=== PATIENT | male | born 1950 | race Caucasian/White ===

== ENCOUNTER → 2018-05-14 07:43 | Outpatient (CLI) | payer MEDICARE, OTHER, SELFPAY ==
[2018-05-14 09:04] LABS: Hemoglobin 14.6 g/dl (13.0-16.5); Mean Corp Hgb Conc 33.2 g/gl (32-36); Mean Corpuscular Hgb 31.8 pg (27.0-32.0); Mean Corpuscular Volume 95.9 fL (80-94); Mean Platelet Vol. 11.3 fl (6.2-12.0); Platelet Count 158 K/mm3 (150-450); RBC Distribution Width CV 12.8 % (11.6-14.6); RBC Distribution Width SD 44.4 fl (35.1-43.9); Red Blood Count 4.59 M/mm3 (4.6-6.2)
[2018-05-14 09:09] LABS: Scan Indicated on CBC? Y/N NO
[2018-05-14 09:20] LABS: Microalbumin,Random Urine 51.8 mg/L (NO RANGE EST.); Microalbumin:Creatinine Ratio 68.2 mg/g CRE (<30 mg/g CRE)
[2018-05-14 09:32] LABS: Albumin, Serum 3.7 g/dL (3.2-5.0); BUN 25 mg/dL (7-18); BUN/Creat Ratio 12.4 RATIO (10-20); Calcium,Total 8.6 mg/dL (8.5-10.1); Chloride 107 mmol/L (98-107); Creatinine, Serum 2.02 mg/dL (0.70-1.30); EST Glomerular Filtration Rate 35 mL/min (>60); Est Glom Filt Rate - Afr Amer 42 mL/min (>60); Glucose 85 mg/dL (74-106); Magnesium 2.3 mg/dL (1.6-2.6); Phosphorus 3.1 mg/dL (2.5-4.9); Potassium 4.4 mmol/L (3.5-5.1); Sodium Level 143 mmol/L (136-145)
[2018-05-14 12:46] LABS: PTHIN 61.3 pg/mL (18.4-80.1); Vitamin D,25 Hydroxy 29.2 ng/mL (29.95-100.01)
== END ==
PROVIDERS: Family Provider Family Medicine; PCP Family Medicine; Visit Provider Internal Medicine Nephrology
DX: N18.3 Chronic kidney disease, stage 3 (moderate) (principal); D63.1 Anemia in chronic kidney disease; E55.9 Vitamin D deficiency, unspecified
CPT/HCPCS: 36415; 80069; 82043; 82306; 82570; 83735; 83970; 85027

== ENCOUNTER → 2018-09-16 08:06 | Outpatient (CLI) | payer MEDICARE, OTHER, SELFPAY ==
[2018-09-16 08:30] LABS: Hematocrit 44.7 % (40-54); Hemoglobin 14.2 g/dl (13.0-16.5); Mean Corp Hgb Conc 31.8 g/gl (32-36); Mean Corpuscular Hgb 31.3 pg (27.0-32.0); Mean Corpuscular Volume 98.7 fL (80-94); Mean Platelet Vol. 10.6 fl (6.2-12.0); Platelet Count 179 K/mm3 (150-450); RBC Distribution Width CV 13.1 % (11.6-14.6); RBC Distribution Width SD 47.4 fl (35.1-43.9); Red Blood Count 4.53 M/mm3 (4.6-6.2); Scan Indicated on CBC? Y/N NO
[2018-09-16 09:02] LABS: Albumin, Serum 3.5 g/dL (3.2-5.0); BUN 26 mg/dL (7-18); BUN/Creat Ratio 13.3 RATIO (10-20); Calcium,Total 8.4 mg/dL (8.5-10.1); Chloride 107 mmol/L (98-107); Creatinine, Serum 1.96 mg/dL (0.70-1.30); EST Glomerular Filtration Rate 36 mL/min (>60); Est Glom Filt Rate - Afr Amer 44 mL/min (>60); Glucose 90 mg/dL (74-106); Magnesium 2.2 mg/dL (1.6-2.6); Phosphorus 3.4 mg/dL (2.5-4.9); Potassium 4.2 mmol/L (3.5-5.1); Sodium Level 141 mmol/L (136-145)
[2018-09-16 09:06] LABS: Microalbumin:Creatinine Ratio 123.7 mg/g CRE (<30 mg/g CRE)
[2018-09-16 09:10] LABS: Vitamin D,25 Hydroxy 34.3 ng/mL (29.95-100.01)
[2018-09-16 09:11] LABS: PTHIN 102.3 pg/mL (18.4-80.1)
== END ==
PROVIDERS: Family Provider Family Medicine; PCP Family Medicine; Referring Provider Internal Medicine Nephrology; Visit Provider Internal Medicine Nephrology
DX: N18.3 Chronic kidney disease, stage 3 (moderate) (principal); D63.1 Anemia in chronic kidney disease; E55.9 Vitamin D deficiency, unspecified
CPT/HCPCS: 36415; 80069; 82043; 82306; 82570; 83735; 83970; 85027

== ENCOUNTER → 2018-09-27 08:37 | Outpatient (CLI) | payer MEDICARE, OTHER, SELFPAY ==
[2018-09-27 10:57] LABS: Anion Gap 6 (5-15); BUN 31 mg/dL (7-18); BUN/Creat Ratio 15.8 RATIO (10-20); Calcium,Total 8.5 mg/dL (8.5-10.1); Chloride 107 mmol/L (98-107); Cholesterol 145 mg/dL (200); Creatinine, Serum 1.96 mg/dL (0.70-1.30); EST Glomerular Filtration Rate 36 mL/min (>60); Est Glom Filt Rate - Afr Amer 44 mL/min (>60); Glucose 82 mg/dL (74-106); High Density Lipoprotein 39 mg/dL; Potassium 4.4 mmol/L (3.5-5.1); Sodium Level 142 mmol/L (136-145); Triglycerides 122 mg/dL; Very Low Density Lipoprotein 24 mg/dL (5-40)
== END ==
PROVIDERS: Family Provider Family Medicine; PCP Family Medicine; Visit Provider Family Medicine
DX: I10 Essential (primary) hypertension (principal); E78.5 Hyperlipidemia, unspecified
CPT/HCPCS: 36415; 80048; 80061

== ENCOUNTER → 2019-04-06 | Outpatient (CLI) | payer MEDICARE, OTHER, SELFPAY ==
[2019-04-06 09:16] LABS: Hematocrit 43.8 % (40-54); Mean Corpuscular Hgb 30.7 pg (27.0-32.0); Mean Corpuscular Volume 96.1 fL (80-94); Mean Platelet Vol. 11.1 fl (6.2-12.0); Platelet Count 165 K/mm3 (150-450); RBC Distribution Width SD 45.4 fl (35.1-43.9); Red Blood Count 4.56 M/mm3 (4.6-6.2); White Blood Count 4.4 K/mm3 (4.4-11.0)
[2019-04-06 09:19] LABS: Scan Indicated on CBC? Y/N NO
[2019-04-06 09:33] LABS: Protein:Creat Ratio 206 mg/g CRE (0-200)
[2019-04-06 09:39] LABS: Albumin, Serum 3.5 g/dL (3.2-5.0); BUN 37 mg/dL (7-18); BUN/Creat Ratio 17.5 RATIO (10-20); Calcium,Total 8.8 mg/dL (8.5-10.1); Chloride 109 mmol/L (98-107); Creatinine, Serum 2.12 mg/dL (0.70-1.30); EST Glomerular Filtration Rate 33 mL/min (>60); Est Glom Filt Rate - Afr Amer 40 mL/min (>60); Glucose 90 mg/dL (74-106); Magnesium 2.2 mg/dL (1.6-2.6); Phosphorus 3.4 mg/dL (2.5-4.9); Potassium 4.9 mmol/L (3.5-5.1); Sodium Level 143 mmol/L (136-145)
[2019-04-06 09:44] LABS: Vitamin D,25 Hydroxy 52.2 ng/mL (29.95-100.01)
[2019-04-06 09:45] LABS: PTHIN 81.5 pg/mL (18.4-80.1)
== END | disposition home or self-care (01) ==
PROVIDERS: Family Provider Family Medicine; PCP Family Medicine; Referring Provider Internal Medicine Nephrology; Visit Provider Internal Medicine Nephrology
DX: N18.3 Chronic kidney disease, stage 3 (moderate) (principal)
CPT/HCPCS: 36415; 80069; 82306; 82570; 83735; 83970; 84156; 85027

== ENCOUNTER → 2019-07-13 | Outpatient (CLI) | payer MEDICARE, OTHER, SELFPAY ==
[2019-07-13 09:34] LABS: Hematocrit 44.3 % (40-54); Hemoglobin 14.2 g/dL (13.0-16.5); Mean Corp Hgb Conc 32.1 g/dL (32-36); Mean Corpuscular Hgb 31.3 pg (27.0-32.0); Mean Corpuscular Volume 97.8 fL (80-94); Mean Platelet Vol. 11.1 fl (6.2-12.0); Platelet Count 175 K/mm3 (150-450); RBC Distribution Width CV 12.4 % (11.6-14.6); RBC Distribution Width SD 45.1 fl (35.1-43.9); Red Blood Count 4.53 M/mm3 (4.6-6.2); White Blood Count 3.9 K/mm3 (4.4-11.0)
[2019-07-13 10:03] LABS: Albumin, Serum 3.9 g/dL (3.2-5.0); BUN 33 mg/dL (7-18); BUN/Creat Ratio 15.3 RATIO (10-20); Calcium,Total 8.8 mg/dL (8.5-10.1); Chloride 106 mmol/L (98-107); Creatinine, Serum 2.15 mg/dL (0.70-1.30); EST Glomerular Filtration Rate 33 mL/min (>60); Est Glom Filt Rate - Afr Amer 39 mL/min (>60); Glucose 86 mg/dL (74-106); Magnesium 2.3 mg/dL (1.6-2.6); Potassium 4.1 mmol/L (3.5-5.1); Sodium Level 140 mmol/L (136-145)
[2019-07-13 10:08] LABS: Vitamin D,25 Hydroxy 49.6 ng/mL (29.95-100.01)
[2019-07-13 10:09] LABS: PTHIN 71.6 pg/mL (18.4-80.1)
[2019-07-13 10:18] LABS: Microalbumin,Random Urine 82.9 mg/L (NO RANGE EST.); Microalbumin:Creatinine Ratio 101.3 mg/g CRE (<30 mg/g CRE)
== END | disposition home or self-care (01) ==
PROVIDERS: Family Provider Family Medicine; PCP Family Medicine; Referring Provider Internal Medicine Nephrology; Visit Provider Internal Medicine Nephrology
DX: E55.9 Vitamin D deficiency, unspecified (principal); N18.4 Chronic kidney disease, stage 4 (severe); D63.1 Anemia in chronic kidney disease
CPT/HCPCS: 36415; 80069; 82043; 82306; 82570; 83735; 83970; 85027

== ENCOUNTER → 2019-08-01 | Outpatient (CLI) | payer MEDICARE, OTHER, SELFPAY ==
[2019-08-01 09:20] LABS: Albumin, Serum 3.7 g/dL (3.2-5.0); BUN 40 mg/dL (7-18); BUN/Creat Ratio 17.8 RATIO (10-20); Calcium,Total 8.7 mg/dL (8.5-10.1); Chloride 110 mmol/L (98-107); Creatinine, Serum 2.25 mg/dL (0.70-1.30); EST Glomerular Filtration Rate 31 mL/min (>60); Est Glom Filt Rate - Afr Amer 37 mL/min (>60); Glucose 85 mg/dL (74-106); Phosphorus 2.9 mg/dL (2.5-4.9); Potassium 4.5 mmol/L (3.5-5.1); Sodium Level 142 mmol/L (136-145)
== END | disposition home or self-care (01) ==
LOC: LAB 08:06
PROVIDERS: Family Provider Family Medicine; PCP Family Medicine; Referring Provider Internal Medicine Nephrology; Visit Provider Internal Medicine Nephrology
DX: I12.9 Hypertensive chronic kidney disease with stage 1 through stage 4 chronic kidney disease, or unspecified chronic kidney disease (principal)
CPT/HCPCS: 36415; 80069

== ENCOUNTER → 2020-01-12 | Outpatient (CLI) | payer MEDICARE, OTHER, SELFPAY ==
[2020-01-12 08:42] LABS: Absolute Lymphocyte Count 1.66 X10^3/uL (0.83-4.51); Absolute Neutrophil Count 2.5 X10^3/uL (2.0-7.7); Basophil# 0.02 X10^3/uL; Basophil% 0.4 % (0-1); Eosinophil# 0.06 X10^3/uL; Eosinophils% 1.2 % (0-5); Hematocrit 37.5 % (40-54); Hemoglobin 11.6 g/dL (13.0-16.5); Lymphocyte # 1.66 X10^3/ul (4.0); Lymphocyte % 33.9 % (19-41); Mean Corp Hgb Conc 30.9 g/dL (32-36); Mean Corpuscular Hgb 30.9 pg (27.0-32.0); Mean Corpuscular Volume 99.7 fL (80-94); Mean Platelet Vol. 11.7 fl (6.2-12.0); Monocyte# 0.62 X10^3/uL; Monocyte% 12.7 % (0-10); NRBC Flagged by Analyzer 0 % (0-5); Neutrophil # 2.53 X10^3/uL (2.7-7.7); Neutrophil % 51.6 % (47-70); Platelet Count 178 K/mm3 (150-450); RBC Distribution Width CV 11.9 % (11.6-14.6); RBC Distribution Width SD 43.7 fl (35.1-43.9); Red Blood Count 3.76 M/mm3 (4.6-6.2); White Blood Count 4.9 K/mm3 (4.4-11.0)
[2020-01-12 09:04] LABS: BUN 32 mg/dL (7-18); Creatinine, Serum 2.31 mg/dL (0.70-1.30); Glucose 91 mg/dL (74-106)
[2020-01-12 09:05] LABS: Albumin, Serum 3.6 g/dL (3.2-5.0); BUN/Creat Ratio 13.9 RATIO (10-20); Calcium,Total 8.2 mg/dL (8.5-10.1); Chloride 110 mmol/L (98-107); EST Glomerular Filtration Rate 30 mL/min (>60); Est Glom Filt Rate - Afr Amer 36 mL/min (>60); Magnesium 2.3 mg/dL (1.6-2.6); Phosphorus 3.3 mg/dL (2.5-4.9); Potassium 4.3 mmol/L (3.5-5.1); Sodium Level 142 mmol/L (136-145)
[2020-01-12 09:07] LABS: Microalbumin,Random Urine 80.2 mg/L (NO RANGE EST.); Microalbumin:Creatinine Ratio 85.7 mg/g CRE (<30 mg/g CRE)
[2020-01-12 10:01] LABS: PTHIN 59.6 pg/mL (18.4-80.1)
[2020-01-12 10:05] LABS: Vitamin D,25 Hydroxy 42.3 ng/mL
== END | disposition home or self-care (01) ==
PROVIDERS: PCP Family Medicine; Referring Provider Internal Medicine Nephrology; Visit Provider Internal Medicine Nephrology
DX: N18.4 Chronic kidney disease, stage 4 (severe) (principal); D63.1 Anemia in chronic kidney disease; E55.9 Vitamin D deficiency, unspecified
CPT/HCPCS: 36415; 80069; 82043; 82306; 82570; 83735; 83970; 85025

== ENCOUNTER → 2020-05-10 | Outpatient (CLI) | payer MEDICARE, OTHER, SELFPAY ==
[2020-05-10 08:19] LABS: Hematocrit 36.6 % (40-54); Hemoglobin 11.5 g/dL (13.0-16.5); Mean Corp Hgb Conc 31.4 g/dL (32-36); Mean Corpuscular Hgb 31.5 pg (27.0-32.0); Mean Corpuscular Volume 100.3 fL (80-94); Mean Platelet Vol. 11.5 fl (6.2-12.0); Platelet Count 158 K/mm3 (150-450); RBC Distribution Width CV 12.6 % (11.6-14.6); RBC Distribution Width SD 46.5 fl (35.1-43.9); Red Blood Count 3.65 M/mm3 (4.6-6.2); White Blood Count 4.8 K/mm3 (4.4-11.0)
[2020-05-10 09:25] LABS: Albumin, Serum 3.8 g/dL (3.2-5.0); BUN 50 mg/dL (7-18); BUN/Creat Ratio 19.8 RATIO (10-20); Calcium,Total 8.5 mg/dL (8.5-10.1); Chloride 111 mmol/L (98-107); Creatinine, Serum 2.53 mg/dL (0.70-1.30); EST Glomerular Filtration Rate 27 mL/min (>60); Est Glom Filt Rate - Afr Amer 33 mL/min (>60); Ferritin 194 ng/mL (26-388); Glucose 91 mg/dL (74-106); Iron 66 ug/dL (65-175); Iron Binding Capacity,Total 196 ug/dL (250-450); Magnesium 2.3 mg/dL (1.6-2.6); Phosphorus 3.9 mg/dL (2.5-4.9); Potassium 4.9 mmol/L (3.5-5.1); Sodium Level 142 mmol/L (136-145)
[2020-05-10 09:30] LABS: Microalbumin,Random Urine 53.7 mg/L (NO RANGE EST.); Microalbumin:Creatinine Ratio 90.3 mg/g CRE (<30 mg/g CRE)
[2020-05-10 15:13] LABS: Vitamin B12 322 pg/mL (211-911); Vitamin D,25 Hydroxy 53.1 ng/mL
== END | disposition home or self-care (01) ==
LOC: LAB 07:55
PROVIDERS: PCP Family Medicine; Referring Provider Internal Medicine Nephrology; Visit Provider Internal Medicine Nephrology
DX: N18.4 Chronic kidney disease, stage 4 (severe) (principal); E55.9 Vitamin D deficiency, unspecified; D63.1 Anemia in chronic kidney disease
CPT/HCPCS: 36415; 80069; 82043; 82306; 82570; 82607; 82728; 82746; 83540; 83550; 83735; 83970; 85027

== ENCOUNTER → 2020-08-13 | Outpatient (CLI) | payer MEDICARE, OTHER, SELFPAY ==
[2020-08-13 08:42] LABS: Hematocrit 35.7 % (40-54); Mean Corp Hgb Conc 30.8 g/dL (32-36); Mean Corpuscular Hgb 31.3 pg (27.0-32.0); Mean Corpuscular Volume 101.4 fL (80-94); Mean Platelet Vol. 11.7 fl (6.2-12.0); Platelet Count 159 K/mm3 (150-450); RBC Distribution Width CV 12.9 % (11.6-14.6); RBC Distribution Width SD 48.4 fl (35.1-43.9); Red Blood Count 3.52 M/mm3 (4.6-6.2); White Blood Count 5.2 K/mm3 (4.4-11.0)
[2020-08-13 09:10] LABS: Albumin, Serum 3.8 g/dL (3.2-5.0); BUN 34 mg/dL (7-18); BUN/Creat Ratio 14.2 RATIO (10-20); Calcium,Total 8.5 mg/dL (8.5-10.1); Chloride 109 mmol/L (98-107); Creatinine, Serum 2.39 mg/dL (0.70-1.30); EST Glomerular Filtration Rate 29 mL/min (>60); Est Glom Filt Rate - Afr Amer 35 mL/min (>60); Glucose 92 mg/dL (74-106); Magnesium 2.3 mg/dL (1.6-2.6); Phosphorus 3.6 mg/dL (2.5-4.9); Potassium 5.3 mmol/L (3.5-5.1); Sodium Level 138 mmol/L (136-145)
[2020-08-15 08:05] LABS: PTHIN 86.1 pg/mL (18.4-80.1)
[2020-08-15 08:16] LABS: Vitamin D,25 Hydroxy 38.6 ng/mL
== END | disposition home or self-care (01) ==
LOC: LAB 07:59
PROVIDERS: PCP Family Medicine; Referring Provider Internal Medicine Nephrology; Visit Provider Internal Medicine Nephrology
DX: E55.9 Vitamin D deficiency, unspecified (principal); N18.4 Chronic kidney disease, stage 4 (severe); D63.1 Anemia in chronic kidney disease
CPT/HCPCS: 36415; 80069; 82306; 82570; 83735; 83970; 85027

== ENCOUNTER → 2020-12-11 08:05 | Outpatient (CLI) | payer MEDICARE, OTHER, SELFPAY ==
[2020-12-11 09:20] LABS: Hematocrit 38.5 % (40-54); Hemoglobin 12.1 g/dL (13.0-16.5); Mean Corp Hgb Conc 31.4 g/dL (32-36); Mean Corpuscular Hgb 30.9 pg (27.0-32.0); Mean Corpuscular Volume 98.2 fL (80-94); Mean Platelet Vol. 11.5 fl (6.2-12.0); Platelet Count 176 K/mm3 (150-450); RBC Distribution Width CV 12.9 % (11.6-14.6); RBC Distribution Width SD 46.2 fl (35.1-43.9); Red Blood Count 3.92 M/mm3 (4.6-6.2); White Blood Count 4.9 K/mm3 (4.4-11.0)
[2020-12-11 09:55] LABS: PTHIN 82.1 pg/mL (18.4-80.1)
[2020-12-11 09:58] LABS: Albumin, Serum 3.6 g/dL (3.2-5.0); BUN 41 mg/dL (7-18); BUN/Creat Ratio 18.6 RATIO (10-20); Calcium,Total 8.6 mg/dL (8.5-10.1); Chloride 112 mmol/L (98-107); Creatinine, Serum 2.21 mg/dL (0.70-1.30); EST Glomerular Filtration Rate 31 mL/min (>60); Est Glom Filt Rate - Afr Amer 38 mL/min (>60); Glucose 87 mg/dL (74-106); Magnesium 2.2 mg/dL (1.6-2.6); Phosphorus 4.2 mg/dL (2.5-4.9); Potassium 4.3 mmol/L (3.5-5.1); Sodium Level 143 mmol/L (136-145)
[2020-12-11 11:41] LABS: Microalbumin,Random Urine 77.2 mg/L (NO RANGE EST.); Microalbumin:Creatinine Ratio 94.4 mg/g CRE (<30 mg/g CRE)
== END ==
PROVIDERS: PCP Family Medicine; Referring Provider Internal Medicine Nephrology; Visit Provider Internal Medicine Nephrology
DX: E55.9 Vitamin D deficiency, unspecified (principal); N18.4 Chronic kidney disease, stage 4 (severe); D63.1 Anemia in chronic kidney disease
CPT/HCPCS: 36415; 80069; 82043; 82306; 82570; 83735; 83970; 85027

== ENCOUNTER 2021-01-15 09:00 | Outpatient (RCR) | payer MEDICARE, OTHER, SELFPAY ==
[2021-01-15] MEDS: COVID-19 VACC, MRNA(PFIZER)/PF 30 MCG/0.3 ML SYRINGE IM (18:20)
[2021-02-05] MEDS: COVID-19 VACC, MRNA(PFIZER)/PF 30 MCG/0.3 ML SYRINGE IM (18:01)
== END 2021-04-16 23:59 ==
LOC: IMMUN 09:00
PROVIDERS: PCP Family Medicine; Visit Provider Family Medicine
DX: Z23 Encounter for immunization (principal)
CPT/HCPCS: 0001A; 0002A; 91300

== ENCOUNTER → 2021-04-17 08:02 | Outpatient (CLI) | payer MEDICARE, OTHER, SELFPAY ==
[2021-04-17 09:08] LABS: Absolute Lymphocyte Count 1.36 X10^3/uL (0.83-4.51); Absolute Neutrophil Count 2.3 X10^3/uL (2.0-7.7); Basophil# 0.03 X10^3/uL; Basophil% 0.7 % (0-1); Eosinophil# 0.07 X10^3/uL; Eosinophils% 1.6 % (0-5); Hematocrit 38.9 % (40-54); Hemoglobin 12.4 g/dL (13.0-16.5); Lymphocyte # 1.36 X10^3/ul (0.83-4.51); Lymphocyte % 31.7 % (19-41); Mean Corp Hgb Conc 31.9 g/dL (32-36); Mean Corpuscular Hgb 30.9 pg (27.0-32.0); Monocyte% 11.7 % (0-10); NRBC Flagged by Analyzer 0 % (0-5); Neutrophil # 2.32 X10^3/uL (2.7-7.7); Neutrophil % 54.1 % (47-70); Platelet Count 215 K/mm3 (150-450); RBC Distribution Width CV 12.2 % (11.6-14.6); RBC Distribution Width SD 43.4 fl (35.1-43.9); Red Blood Count 4.01 M/mm3 (4.6-6.2); White Blood Count 4.3 K/mm3 (4.4-11.0)
[2021-04-17 09:40] LABS: Microalbumin,Random Urine 27.3 mg/L (NO RANGE EST.); Microalbumin:Creatinine Ratio 43.8 mg/g CRE (<30 mg/g CRE)
[2021-04-17 09:46] LABS: PTHIN 76.7 pg/mL (18.4-80.1)
[2021-04-17 09:51] LABS: Vitamin D,25 Hydroxy 46.2 ng/mL
[2021-04-17 09:52] LABS: Albumin, Serum 3.3 g/dL (3.2-5.0); BUN 54 mg/dL (7-18); BUN/Creat Ratio 21.7 RATIO (10-20); Calcium,Total 8.5 mg/dL (8.5-10.1); Chloride 112 mmol/L (98-107); Creatinine, Serum 2.49 mg/dL (0.70-1.30); EST Glomerular Filtration Rate 27 mL/min (>60); Est Glom Filt Rate - Afr Amer 33 mL/min (>60); Glucose 96 mg/dL (74-106); Magnesium 2.5 mg/dL (1.6-2.6); Phosphorus 3.2 mg/dL (2.5-4.9); Potassium 5.2 mmol/L (3.5-5.1); Sodium Level 141 mmol/L (136-145)
== END ==
PROVIDERS: PCP Family Medicine; Referring Provider Internal Medicine Nephrology; Visit Provider Internal Medicine Nephrology
DX: N18.4 Chronic kidney disease, stage 4 (severe) (principal); D63.1 Anemia in chronic kidney disease; E55.9 Vitamin D deficiency, unspecified
CPT/HCPCS: 36415; 80069; 82043; 82306; 82570; 83735; 83970; 85025

== ENCOUNTER → 2021-08-26 08:03 | Outpatient (CLI) | payer MEDICARE, OTHER, SELFPAY ==
[2021-08-26 09:32] LABS: Hematocrit 37.8 % (40-54); Hemoglobin 11.8 g/dL (13.0-16.5); Mean Corp Hgb Conc 31.2 g/dL (32-36); Mean Corpuscular Hgb 31.3 pg (27.0-32.0); Mean Corpuscular Volume 100.3 fL (80-94); Mean Platelet Vol. 11.1 fl (6.2-12.0); Platelet Count 208 K/mm3 (150-450); RBC Distribution Width CV 12.1 % (11.6-14.6); RBC Distribution Width SD 44.6 fl (35.1-43.9); Red Blood Count 3.77 M/mm3 (4.6-6.2); White Blood Count 4.8 K/mm3 (4.4-11.0)
[2021-08-26 10:24] LABS: Albumin, Serum 3.4 g/dL (3.2-5.0); Anion Gap 6 (5-15); BUN 33 mg/dL (7-18); BUN/Creat Ratio 13.2 RATIO (10-20); Chloride 110 mmol/L (98-107); Cholesterol 166 mg/dL (200); EST Glomerular Filtration Rate 27 mL/min (>60); Est Glom Filt Rate - Afr Amer 33 mL/min (>60); Glucose 90 mg/dL (74-106); High Density Lipoprotein 37 mg/dL; Magnesium 2.4 mg/dL (1.6-2.6); Phosphorus 3.4 mg/dL (2.5-4.9); Potassium 4.9 mmol/L (3.5-5.1); Sodium Level 141 mmol/L (136-145); Triglycerides 133 mg/dL; Very Low Density Lipoprotein 27 mg/dL (5-40)
[2021-08-26 10:47] LABS: PTHIN 79.1 pg/mL (18.4-80.1)
[2021-08-26 10:53] LABS: Vitamin D,25 Hydroxy 44.1 ng/mL
[2021-08-26 10:58] LABS: Microalbumin,Random Urine 48.4 mg/L (NO RANGE EST.); Microalbumin:Creatinine Ratio 91.3 mg/g CRE (<30 mg/g CRE)
== END ==
PROVIDERS: PCP Family Medicine; Referring Provider Family Medicine; Visit Provider Family Medicine
DX: E55.9 Vitamin D deficiency, unspecified (principal); N18.4 Chronic kidney disease, stage 4 (severe); D63.1 Anemia in chronic kidney disease; E78.5 Hyperlipidemia, unspecified
CPT/HCPCS: 36415; 80048; 80061; 82040; 82043; 82306; 82570; 83735; 83970; 84100; 85027

== ENCOUNTER → 2022-03-10 | Outpatient (CLI) | payer MEDICARE, OTHER, SELFPAY ==
[2022-03-10 09:06] LABS: Hematocrit 36.5 % (40-54); Hemoglobin 11.5 g/dL (13.0-16.5); Mean Corp Hgb Conc 31.5 g/dL (32-36); Mean Corpuscular Hgb 31.7 pg (27.0-32.0); Mean Corpuscular Volume 100.6 fL (80-94); Mean Platelet Vol. 11.5 fl (6.2-12.0); Platelet Count 191 K/mm3 (150-450); RBC Distribution Width CV 12.9 % (11.6-14.6); RBC Distribution Width SD 48.2 fl (35.1-43.9); Red Blood Count 3.63 M/mm3 (4.6-6.2); White Blood Count 6.8 K/mm3 (4.4-11.0)
[2022-03-10 09:27] LABS: Microalbumin:Creatinine Ratio 133.3 mg/g CRE (<30 mg/g CRE)
[2022-03-10 09:32] LABS: Albumin, Serum 3.8 g/dL (3.2-5.0); BUN 41 mg/dL (7-18); BUN/Creat Ratio 16.3 RATIO (10-20); Calcium,Total 8.4 mg/dL (8.5-10.1); Chloride 112 mmol/L (98-107); Cholesterol 172 mg/dL (200); Creatinine, Serum 2.51 mg/dL (0.70-1.30); EST Glomerular Filtration Rate 27 mL/min (>60); Est Glom Filt Rate - Afr Amer 33 mL/min (>60); Glucose 90 mg/dL (74-106); High Density Lipoprotein 40 mg/dL; Magnesium 2.2 mg/dL (1.6-2.6); Phosphorus 3.6 mg/dL (2.5-4.9); Potassium 5.1 mmol/L (3.5-5.1); Sodium Level 140 mmol/L (136-145); Triglycerides 104 mg/dL; Very Low Density Lipoprotein 21 mg/dL (5-40)
[2022-03-10 09:35] LABS: Vitamin D,25 Hydroxy 44.3 ng/mL
== END | disposition home or self-care (01) ==
LOC: LAB 08:10
PROVIDERS: PCP Family Medicine; Referring Provider Internal Medicine Nephrology; Visit Provider Internal Medicine Nephrology
DX: I12.9 Hypertensive chronic kidney disease with stage 1 through stage 4 chronic kidney disease, or unspecified chronic kidney disease (principal); N18.4 Chronic kidney disease, stage 4 (severe); E55.9 Vitamin D deficiency, unspecified; D63.1 Anemia in chronic kidney disease
CPT/HCPCS: 36415; 80061; 80069; 82043; 82306; 82570; 83735; 83970; 85027

== ENCOUNTER → 2022-03-31 | Outpatient (CLI) | payer MEDICARE, OTHER, SELFPAY ==
[2022-03-31 15:57] LABS: PSA,Total - Annual Screen 4.21 ng/mL (0.00-4.00)
== END | disposition home or self-care (01) ==
LOC: LAB 14:55
PROVIDERS: PCP Family Medicine; Visit Provider Urology
DX: Z12.5 Encounter for screening for malignant neoplasm of prostate (principal)
CPT/HCPCS: 36415; 84153; G0103

== ENCOUNTER → 2022-09-08 | Outpatient (CLI) | payer MEDICARE, OTHER, SELFPAY ==
[2022-09-08 10:28] LABS: Hematocrit 33.5 % (40-54); Hemoglobin 10.8 g/dL (13.0-16.5); Mean Corp Hgb Conc 32.2 g/dL (32-36); Mean Corpuscular Hgb 32.3 pg (27.0-32.0); Mean Corpuscular Volume 100.3 fL (80-94); Mean Platelet Vol. 11.4 fl (6.2-12.0); Platelet Count 163 K/mm3 (150-450); RBC Distribution Width CV 12.3 % (11.6-14.6); RBC Distribution Width SD 44.9 fl (35.1-43.9); Red Blood Count 3.34 M/mm3 (4.6-6.2); White Blood Count 6.1 K/mm3 (4.4-11.0)
[2022-09-08 10:55] LABS: Vitamin D,25 Hydroxy 48.3 ng/mL
[2022-09-08 11:01] LABS: AST(SGOT) 9 U/L (15-37); Alanine Aminotransfer ALT/SGPT 15 U/L (16-61); Albumin, Serum 3.5 g/dL (3.2-5.0); Alkaline Phosphatase 55 U/L (45-117); Anion Gap 8 (5-15); BUN 41 mg/dL (7-18); BUN/Creat Ratio 15.6 RATIO (10-20); Calcium,Total 8.7 mg/dL (8.5-10.1); Chloride 110 mmol/L (98-107); Cholesterol 157 mg/dL (200); Creatinine, Serum 2.62 mg/dL (0.70-1.30); EST Glomerular Filtration Rate 26 mL/min (>60); Est Glom Filt Rate - Afr Amer 31 mL/min (>60); Globulin 3.4 g/dL (2.2-4.2); Glucose 90 mg/dL (74-106); High Density Lipoprotein 46 mg/dL; Magnesium 2.4 mg/dL (1.6-2.6); Microalbumin:Creatinine Ratio 96.9 mg/g CRE (<30 mg/g CRE); PSA,Total- Diagnostic 5.48 ng/mL (0.0-4.0); Potassium 4.7 mmol/L (3.5-5.1); Protein, Total 6.9 g/dL (6.4-8.2); Sodium Level 142 mmol/L (136-145); Triglycerides 65 mg/dL; Very Low Density Lipoprotein 13 mg/dL (5-40)
== END | disposition home or self-care (01) ==
LOC: LAB 08:43
PROVIDERS: PCP Family Medicine; Referring Provider Family Medicine; Visit Provider Family Medicine
DX: N40.0 Benign prostatic hyperplasia without lower urinary tract symptoms (principal); N18.4 Chronic kidney disease, stage 4 (severe); E78.5 Hyperlipidemia, unspecified; D63.1 Anemia in chronic kidney disease; E55.9 Vitamin D deficiency, unspecified
CPT/HCPCS: 36415; 80053; 80061; 82043; 82306; 82570; 83735; 83970; 84153; 85027

== ENCOUNTER → 2022-10-13 | Outpatient (CLI) | payer MEDICARE, OTHER, SELFPAY ==
[2022-10-13 09:09] LABS: Hematocrit 38.5 % (40-54); Hemoglobin 11.8 g/dL (13.0-16.5); Mean Corp Hgb Conc 30.6 g/dL (32-36); Mean Corpuscular Hgb 30.5 pg (27.0-32.0); Mean Corpuscular Volume 99.5 fL (80-94); Mean Platelet Vol. 11.3 fl (6.2-12.0); Platelet Count 183 K/mm3 (150-450); RBC Distribution Width SD 43.8 fl (35.1-43.9); Red Blood Count 3.87 M/mm3 (4.6-6.2); White Blood Count 4.5 K/mm3 (4.4-11.0)
[2022-10-13 09:29] LABS: Microalbumin,Random Urine 51.7 mg/L (NO RANGE EST.); Microalbumin:Creatinine Ratio 90.1 mg/g CRE (<30 mg/g CRE)
[2022-10-13 09:39] LABS: PTHIN 53.8 pg/mL (18.4-80.1)
[2022-10-13 09:41] LABS: Albumin, Serum 3.7 g/dL (3.2-5.0); BUN 34 mg/dL (7-18); BUN/Creat Ratio 13.7 RATIO (10-20); Chloride 112 mmol/L (98-107); Creatinine, Serum 2.49 mg/dL (0.70-1.30); EST Glomerular Filtration Rate 27 mL/min (>60); Est Glom Filt Rate - Afr Amer 33 mL/min (>60); Ferritin 142 ng/mL (26-388); Glucose 95 mg/dL (74-106); Iron 55 ug/dL (65-175); Iron Binding Capacity,Total 186 ug/dL (250-450); Magnesium 2.4 mg/dL (1.6-2.6); Phosphorus 3.5 mg/dL (2.5-4.9); Potassium 5.2 mmol/L (3.5-5.1); Sodium Level 140 mmol/L (136-145)
[2022-10-13 09:42] LABS: Vitamin D,25 Hydroxy 50.5 ng/mL
== END | disposition home or self-care (01) ==
LOC: LAB 08:23
PROVIDERS: PCP Family Medicine; Referring Provider Internal Medicine Nephrology; Visit Provider Internal Medicine Nephrology
DX: N18.4 Chronic kidney disease, stage 4 (severe) (principal); D63.1 Anemia in chronic kidney disease; E55.9 Vitamin D deficiency, unspecified
CPT/HCPCS: 36415; 80069; 82043; 82306; 82570; 82728; 83540; 83550; 83735; 83970; 85027

== ENCOUNTER → 2023-01-13 | Outpatient (CLI) | payer MEDICARE, OTHER, SELFPAY ==
[2023-01-13 08:32] LABS: Hematocrit 37.2 % (40-54); Hemoglobin 11.5 g/dL (13.0-16.5); Mean Corp Hgb Conc 30.9 g/dL (32-36); Mean Corpuscular Hgb 31.6 pg (27.0-32.0); Mean Corpuscular Volume 102.2 fL (80-94); Mean Platelet Vol. 11.1 fl (6.2-12.0); Platelet Count 190 K/mm3 (150-450); RBC Distribution Width CV 13.4 % (11.6-14.6); RBC Distribution Width SD 50.3 fl (35.1-43.9); Red Blood Count 3.64 M/mm3 (4.6-6.2)
[2023-01-13 08:56] LABS: PTHIN 100.1 pg/mL (18.4-80.1)
[2023-01-13 08:59] LABS: Vitamin D,25 Hydroxy 51.1 ng/mL
[2023-01-13 09:11] LABS: Microalbumin,Random Urine 88.9 mg/L (NO RANGE EST.); Microalbumin:Creatinine Ratio 92.2 mg/g CRE (<30 mg/g CRE)
[2023-01-13 09:15] LABS: Albumin, Serum 3.7 g/dL (3.2-5.0); BUN 38 mg/dL (7-18); BUN/Creat Ratio 15.9 RATIO (10-20); Calcium,Total 8.8 mg/dL (8.5-10.1); Chloride 112 mmol/L (98-107); Creatinine, Serum 2.39 mg/dL (0.70-1.30); EST Glomerular Filtration Rate 29 mL/min (>60); Est Glom Filt Rate - Afr Amer 34 mL/min (>60); Ferritin 86 ng/mL (26-388); Glucose 100 mg/dL (74-106); Iron 71 ug/dL (65-175); Iron Binding Capacity,Total 242 ug/dL (250-450); Magnesium 2.4 mg/dL (1.6-2.6); PERCENT IRON SATURATION 29.3 % (15.0-55.0); Phosphorus 4.1 mg/dL (2.5-4.9); Potassium 4.6 mmol/L (3.5-5.1); Sodium Level 145 mmol/L (136-145)
== END | disposition home or self-care (01) ==
LOC: LAB 08:04
PROVIDERS: PCP Family Medicine; Referring Provider Internal Medicine Nephrology; Visit Provider Internal Medicine Nephrology
DX: N18.4 Chronic kidney disease, stage 4 (severe) (principal); E55.9 Vitamin D deficiency, unspecified; D63.1 Anemia in chronic kidney disease
CPT/HCPCS: 36415; 80069; 82043; 82306; 82570; 82728; 83540; 83550; 83735; 83970; 85027

== ENCOUNTER → 2023-03-16 | Outpatient (CLI) | payer MEDICARE, OTHER, SELFPAY ==
[2023-03-16 08:43] LABS: Anion Gap 4 (5-15); BUN 49 mg/dL (7-18); BUN/Creat Ratio 18.1 RATIO (10-20); Calcium,Total 8.4 mg/dL (8.5-10.1); Chloride 114 mmol/L (98-107); Cholesterol 165 mg/dL (200); EST Glomerular Filtration Rate 25 mL/min (>60); Est Glom Filt Rate - Afr Amer 30 mL/min (>60); Glucose 99 mg/dL (74-106); High Density Lipoprotein 39 mg/dL; Potassium 5.1 mmol/L (3.5-5.1); Sodium Level 139 mmol/L (136-145); Triglycerides 94 mg/dL; Very Low Density Lipoprotein 19 mg/dL (5-40)
== END | disposition home or self-care (01) ==
LOC: LAB 08:09
PROVIDERS: PCP Family Medicine; Referring Provider Family Medicine; Visit Provider Family Medicine
DX: I10 Essential (primary) hypertension (principal)
CPT/HCPCS: 36415; 80048; 80061

== ENCOUNTER → 2023-07-27 | Outpatient (CLI) | payer MEDICARE, OTHER, SELFPAY ==
[2023-07-27 09:18] LABS: Hematocrit 35.3 % (40-54); Hemoglobin 10.9 g/dL (13.0-16.5); Mean Corp Hgb Conc 30.9 g/dL (32-36); Mean Corpuscular Hgb 31.2 pg (27.0-32.0); Mean Corpuscular Volume 101.1 fL (80-94); Mean Platelet Vol. 11.3 fl (6.2-12.0); Platelet Count 170 K/mm3 (150-450); RBC Distribution Width CV 13.1 % (11.6-14.6); RBC Distribution Width SD 48.2 fl (35.1-43.9); Red Blood Count 3.49 M/mm3 (4.6-6.2); White Blood Count 4.7 K/mm3 (4.4-11.0)
[2023-07-27 09:30] LABS: Protein, Urine (Random) 18.7 mg/dL (<11.9); Protein:Creat Ratio 294 mg/g CRE (0-200)
[2023-07-27 10:06] LABS: Albumin, Serum 3.9 g/dL (3.2-5.0); BUN 38 mg/dL (7-18); BUN/Creat Ratio 15.4 RATIO (10-20); Chloride 110 mmol/L (98-107); Creatinine, Serum 2.47 mg/dL (0.70-1.30); EST Glomerular Filtration Rate 27 mL/min (>60); Est Glom Filt Rate - Afr Amer 33 mL/min (>60); Glucose 100 mg/dL (74-106); Phosphorus 3.9 mg/dL (2.5-4.9); Potassium 4.7 mmol/L (3.5-5.1); Sodium Level 141 mmol/L (136-145)
[2023-07-27 10:08] LABS: Vitamin D,25 Hydroxy 59.9 ng/mL
== END | disposition home or self-care (01) ==
LOC: LAB 08:05
PROVIDERS: PCP Family Medicine; Referring Provider Internal Medicine Nephrology; Visit Provider Internal Medicine Nephrology
DX: N18.4 Chronic kidney disease, stage 4 (severe) (principal); E55.9 Vitamin D deficiency, unspecified; D63.1 Anemia in chronic kidney disease
CPT/HCPCS: 36415; 80069; 82306; 82570; 83970; 84156; 85027

== ENCOUNTER → 2023-09-17 | Outpatient (CLI) | payer MEDICARE, OTHER, SELFPAY ==
[2023-09-17 09:10] LABS: Anion Gap 2 (5-15); BUN 36 mg/dL (7-18); BUN/Creat Ratio 14.3 RATIO (10-20); Calcium,Total 8.7 mg/dL (8.5-10.1); Chloride 111 mmol/L (98-107); Cholesterol 168 mg/dL (200); Creatinine, Serum 2.51 mg/dL (0.70-1.30); EST Glomerular Filtration Rate 27 mL/min (>60); Est Glom Filt Rate - Afr Amer 33 mL/min (>60); Glucose 90 mg/dL (74-106); High Density Lipoprotein 36 mg/dL; Potassium 4.8 mmol/L (3.5-5.1); Sodium Level 140 mmol/L (136-145); Triglycerides 101 mg/dL; Very Low Density Lipoprotein 20 mg/dL (5-40)
== END | disposition home or self-care (01) ==
LOC: LAB 07:58
PROVIDERS: PCP Family Medicine; Visit Provider Family Medicine
DX: I10 Essential (primary) hypertension (principal)
CPT/HCPCS: 36415; 80048; 80061

== ENCOUNTER → 2024-02-09 | Outpatient (CLI) | payer MEDICARE, OTHER, SELFPAY ==
[2024-02-09 08:18] LABS: Hematocrit 33.9 % (40-54); Hemoglobin 10.7 g/dL (13.0-16.5); Mean Corp Hgb Conc 31.6 g/dL (32-36); Mean Corpuscular Hgb 31.4 pg (27.0-32.0); Mean Corpuscular Volume 99.4 fL (80-94); Mean Platelet Vol. 10.5 fl (6.2-12.0); Platelet Count 180 K/mm3 (150-450); RBC Distribution Width CV 13.2 % (11.6-14.6); RBC Distribution Width SD 48.5 fl (35.1-43.9); Red Blood Count 3.41 M/mm3 (4.6-6.2); White Blood Count 5.3 K/mm3 (4.4-11.0)
[2024-02-09 08:52] LABS: Albumin, Serum 3.7 g/dL (3.2-5.0); BUN 42 mg/dL (7-18); BUN/Creat Ratio 15.8 RATIO (10-20); Calcium,Total 8.9 mg/dL (8.5-10.1); Chloride 110 mmol/L (98-107); Creatinine, Serum 2.65 mg/dL (0.70-1.30); EST Glomerular Filtration Rate 25 mL/min (>60); Est Glom Filt Rate - Afr Amer 31 mL/min (>60); Glucose 100 mg/dL (74-106); Phosphorus 3.9 mg/dL (2.5-4.9); Potassium 4.4 mmol/L (3.5-5.1); Sodium Level 140 mmol/L (136-145)
[2024-02-09 10:01] LABS: Protein, Urine (Random) 24.2 mg/dL (<11.9); Protein:Creat Ratio 330 mg/g CRE (0-200)
== END | disposition home or self-care (01) ==
LOC: LAB 08:03
PROVIDERS: PCP Family Medicine; Referring Provider Internal Medicine Nephrology; Visit Provider Internal Medicine Nephrology
DX: N18.4 Chronic kidney disease, stage 4 (severe) (principal); D63.1 Anemia in chronic kidney disease
CPT/HCPCS: 36415; 80069; 82570; 84156; 85027

== ENCOUNTER → 2024-03-14 | Outpatient (CLI) | payer MEDICARE, OTHER, SELFPAY ==
[2024-03-14 17:47] LABS: PSA,Total- Diagnostic 3.49 ng/mL (0.0-4.0)
== END | disposition home or self-care (01) ==
LOC: MFPLAB 14:31
PROVIDERS: PCP Family Medicine; Visit Provider Family Medicine
DX: N40.0 Benign prostatic hyperplasia without lower urinary tract symptoms (principal)
CPT/HCPCS: 36415; 84153

== ENCOUNTER → 2024-08-08 | Outpatient (CLI) | payer MEDICARE, OTHER, SELFPAY ==
[2024-08-08 09:18] LABS: Hemoglobin 11.3 g/dL (13.0-16.5); Mean Corp Hgb Conc 31.4 g/dL (32-36); Mean Corpuscular Hgb 31.6 pg (27.0-32.0); Mean Corpuscular Volume 100.6 fL (80-94); Mean Platelet Vol. 11.5 fl (6.2-12.0); Platelet Count 190 K/mm3 (150-450); RBC Distribution Width CV 13.2 % (11.6-14.6); RBC Distribution Width SD 48.6 fl (35.1-43.9); Red Blood Count 3.58 M/mm3 (4.6-6.2); White Blood Count 6.2 K/mm3 (4.4-11.0)
[2024-08-08 09:42] LABS: Albumin, Serum 4.2 g/dL (3.2-5.0); BUN 37 mg/dL (7-18); BUN/Creat Ratio 14.1 RATIO (10-20); Calcium,Total 9.8 mg/dL (8.5-10.1); Chloride 105 mmol/L (98-107); Creatinine, Serum 2.63 mg/dL (0.70-1.30); EST Glomerular Filtration Rate 25 mL/min (>60); Est Glom Filt Rate - Afr Amer 31 mL/min (>60); Glucose 94 mg/dL (74-106); Phosphorus 3.5 mg/dL (2.5-4.9); Potassium 4.1 mmol/L (3.5-5.1); Sodium Level 138 mmol/L (136-145)
[2024-08-08 09:45] LABS: Protein, Urine (Random) 22.1 mg/dL (<11.9); Protein:Creat Ratio 415 mg/g CRE (0-200)
== END | disposition home or self-care (01) ==
LOC: LAB 07:57
PROVIDERS: PCP Family Medicine; Referring Provider Nurse Practitioner Adult Health; Visit Provider Nurse Practitioner Adult Health
DX: N18.4 Chronic kidney disease, stage 4 (severe) (principal); D63.1 Anemia in chronic kidney disease
CPT/HCPCS: 36415; 80069; 82570; 84156; 85027

== ENCOUNTER → 2025-02-01 | Outpatient (CLI) | payer MEDICARE, OTHER, SELFPAY ==
[2025-02-01 09:18] LABS: Anion Gap 10 (5-15); BUN 35 mg/dL (4-19); BUN/Creat Ratio 14.6 RATIO (10-20); Calcium,Total 9.1 mg/dL (7.6-11.0); Carbon Dioxide 20.4 mmol/L (21.0-32.0); Chloride 108 mmol/L (98-108); Creatinine, Serum 2.39 mg/dL (0.70-1.20); EST Glomerular Filtration Rate 28 (>60); Glucose 100 mg/dL (70-99); Phosphorus 3.7 mg/dL (2.7-4.5); Sodium Level 139 mmol/L (133-145)
[2025-02-01 09:21] LABS: Protein:Creat Ratio 312 mg/g CRE (0-200)
== END | disposition home or self-care (01) ==
LOC: LAB 08:08
PROVIDERS: PCP Family Medicine; Referring Provider Internal Medicine Nephrology; Visit Provider Internal Medicine Nephrology
DX: N18.4 Chronic kidney disease, stage 4 (severe) (principal)
CPT/HCPCS: 36415; 80069; 82570; 84156

== ENCOUNTER → 2025-03-14 | Outpatient (CLI) | payer MEDICARE, OTHER, SELFPAY ==
[2025-03-14 09:22] LABS: ALB/GLOB Ratio 1.3 RATIO (0.9-2.4); AST(SGOT) 16 U/L (<=37); Alanine Aminotransfer ALT/SGPT 10 U/L (<=46); Alkaline Phosphatase 62 U/L (40-129); Anion Gap 10 (5-15); BUN 32 mg/dL (4-19); BUN/Creat Ratio 12.3 RATIO (10-20); Carbon Dioxide 22.3 mmol/L (21.0-32.0); Chloride 109 mmol/L (98-108); Cholesterol 182 mg/dL (<=200); EST Glomerular Filtration Rate 25 (>60); Globulin 3.1 g/dL (2.2-4.2); Glucose 91 mg/dL (70-99); High Density Lipoprotein 41 mg/dL; Low Density Lipoprotein Calc. 123 mg/dL; Potassium 4.9 mmol/L (3.3-5.1); Sodium Level 142 mmol/L (133-145); Total Bilirubin 0.29 mg/dL (0.00-1.30); Triglycerides 89 mg/dL; Very Low Density Lipoprotein 18 mg/dL (5-40); cholesterol:hdl ratio screen 4.44
== END | disposition home or self-care (01) ==
PROVIDERS: PCP Family Medicine; Referring Provider Family Medicine; Visit Provider Family Medicine
DX: E78.5 Hyperlipidemia, unspecified (principal); I10 Essential (primary) hypertension
CPT/HCPCS: 36415; 80053; 80061

== ENCOUNTER → 2025-08-08 | Outpatient (CLI) | payer MEDICARE, OTHER, SELFPAY ==
[2025-08-08 09:50] LABS: Creatinine, Urine (random) 106.00 mg/dL (39.00-259.00); Protein, Urine (Random) 29.1 mg/dL (0.0-12.0); Protein:Creat Ratio 275 mg/g CRE (0-200)
[2025-08-08 09:52] LABS: Hematocrit 31.3 % (40-54); Hemoglobin 9.7 g/dL (13.0-16.5); Mean Corp Hgb Conc 31.0 g/dL (32-36); Mean Corpuscular Volume 102.3 fL (80-94); Mean Platelet Vol. 11.6 fl (6.2-12.0); Platelet Count 183 K/mm3 (150-450); RBC Distribution Width CV 13.2 % (11.6-14.6); RBC Distribution Width SD 49.5 fl (35.1-43.9); Red Blood Count 3.06 M/mm3 (4.6-6.2); White Blood Count 4.7 K/mm3 (4.4-11.0)
[2025-08-08 10:05] LABS: Anion Gap 12 (5-15); BUN 32 mg/dL (4-19); BUN/Creat Ratio 12.5 RATIO (10-20); Calcium,Total 8.5 mg/dL (7.6-11.0); Carbon Dioxide 19.5 mmol/L (21.0-32.0); Chloride 108 mmol/L (98-108); Glucose 102 mg/dL (70-99); Potassium 4.8 mmol/L (3.3-5.1)
== END | disposition home or self-care (01) ==
PROVIDERS: PCP Family Medicine; Referring Provider Internal Medicine Nephrology; Visit Provider Internal Medicine Nephrology
DX: N18.4 Chronic kidney disease, stage 4 (severe) (principal); D63.1 Anemia in chronic kidney disease
CPT/HCPCS: 36415; 80048; 82570; 84156; 85027

== ENCOUNTER → 2025-09-15 | Outpatient (CLI) | payer MEDICARE, OTHER, SELFPAY ==
--- OUTSIDE RECORDS SUMMARY | 2025-09-15 16:12 | XMS RPT_ITS | CCD ---
Author Organization [facility] Care Team Providers Care Tuberculosis Specialist Name Role Phone Anika SHUKLA, Dr. Delong Primary Care Provider [phone] Lon SHUKLA, Dr. Vazquez Attending Provider Lon SHUKLA, Dr. Vazquez Referring Provider Anika SHUKLA, Dr. Delong Attending Provider [phone] Anika SHUKLA, Dr. Delong Referring Provider [phone] George Forrest Referring Unavailable George Forrest Attending Unavailable Baljeet Donaldson Primary Care Unavailable Baljeet Donaldson Referring Unavailable Baljeet Donaldson Attending Unavailable Baljeet Donaldson Primary Care Unavailable eGorge Forrest Referring Unavailable George Forrest Attending Unavailable Baljeet Donaldson Primary Care Unavailable Medications Current Medications Medication Drug Class(es) Dates Sig (Normalized) Sig (Original) atorvastatin 20 mg oral tablet (9 sources) HMG-CoA Reductase Inhibitor Start: 08-08-2013 take 1 tablet by mouth at bedtime Atorvastatin 20 MG tablet Active 20 mg PO AT BEDTIME August 08, 2013 12:00am bethanechol chloride 25 mg oral tablet (9 sources) Cholinergic Muscarinic Agonist Start: 08-08-2013 take 1 tablet by mouth once daily Bethanechol Chloride 25 MG tablet Active 25 mg PO DAILY August 08, 2013 12:00am chlorthalidone 50 mg oral tablet (9 sources) Thiazide-like Diuretic Start: 08-08-2013 take 1 tablet by mouth twice daily Chlorthalidone 50 MG tablet Active 50 mg PO TWICE A DAY August 08, 2013 12:00am hydrALAZINE hydrochloride 10 mg oral tablet (9 sources) Arteriolar Vasodilator Start: 08-08-2013 take 1 tablet by mouth four times daily Hydralazine 10 MG tablet Active 10 mg PO 4 TIMES DAILY August 08, 2013 12:00am 24 hr metoprolol succinate 100 mg extended release oral tablet (9 sources) beta-Adrenergic Lulu Start: 08-08-2013 take 1 tablet by mouth once daily Metoprolol Succinate 100 MG tablet Active 100 mg PO DAILY August 08, 2013 12:00am tamsulosin hydrochloride 0.4 mg oral capsule (9 sources) alpha-Adrenergic Lulu Start: 08-08-2013 take 1 capsule by mouth once daily Tamsulosin 0.4 MG capsule Active 0.4 mg PO DAILY August 08, 2013 12:00am Problems Problem Classification Problem Date Documented Da te Episodic/Chronic Chronic kidney disease (1 source) Chronic kidney disease, stage 4 (severe); Translations: [Chronic kidney disease, stage 4 (severe)] Onset: 09-01-2025 Chronic Disorders of lipid metabolism (1 source) Hyperlipidemia, unspecified; Translations: [Hyperlipidemia, unspecified] Onset: 03-18-2025 Chronic Results Test Name Value Interpretation Reference Range Facility Basic Metabolic Profile (BMP )on 08-08-2025 BUN/CRE 12.5 RATIO Normal 10- [facility] Comment on above: Performed By: #### L 501.0900, L100.0500, L500.2500 #### [facility] [address] [place], [address] Calcium [Mass/Vol] 8.5 mg/dL Normal 7.6-11.0 [facility] Comment on above: Performed By: #### L 501.0900, L100.0500, L500.2500 #### [facility] [address] [place], [address] Chloride [Moles/Vol] 108 mmol/L Normal 98-108 [facility] Comment on above: Performed By: #### L 501.0900, L100.0500, L500.2500 #### [facility] [address] [place], [address] CO2 [Moles/Vol] 19.5 mmol/L Low 21.0-32.0 [facility] Comment on above: Performed By: #### L 501.0900, L100.0500, L500.2500 #### [facility] [address] [place], [address] Creatinine [Mass/Vol] 2.59 mg/dL High 0.70-1.20 [facility] Comment on above: Performed By: #### L 501.0900, L100.0500, L500.2500 #### [facility] [address] [place], [address] GAP 12 Normal 5-15 [facility] Comment on above: Performed By: #### L 501.0900, L100.0500, L500.2500 #### [facility] [address] [place], [address] GFR/1.73 sq M.predicted among non-blacks MDRD (S/P/Bld) [Vol rate/Area] 25 mL/min/{1.73_m2} Low >60 [facility] Comment on above: Result Comment: mL/m in/1.73m2 CKD-EPI Creatinine Equation (2020) Performed By: #### L 501.0900, L100.0500, L500.2500 #### [facility] [address] [place], [address] Glucose [Mass/Vol] 102 mg/dL High 70-99 [facility] Comment on above: Performed By: #### L 501.0900, L100.0500, L500.2500 #### [facility] [address] [place], [address] Potassium [Moles/Vol] 4.8 mmol/L Normal 3.3-5.1 [facility] Comment on above: Performed By: #### L 501.0900, L100.0500, L500.2500 #### [facility] [address] [place], [address] Sodium [Moles/Vol] 140 mmol/L Normal 133-145 [facility] Comment on above: Performed By: #### L 501.0900, L100.0500, L500.2500 #### [facility] [address] [place], [address] Urea nitrogen [Mass/Vol] 32 mg/dL High 4-19 [facility] Comment on above: Performed By: #### L 501.0900, L100.0500, L500.2500 #### [facility] [address] [place], [address] CBC-Complete Blood Cnt No Di ffon 08-08-2025 Erythrocyte distribution width (RBC) [Ratio] 13.2 % Normal 11.6-14.6 [facility] Comment on above: Performed By: #### L 501.0900, L100.0500, L500.2500 #### [facility] [address] [place], [address] Hematocrit (Bld) [Volume fraction] 31.3 % Low 40-54 [facility] Comment on above: Performed By: #### L 501.0900, L100.0500, L500.2500 #### [facility] [address] [place], [address] Hemoglobin (Bld) [Mass/Vol] 9.7 g/dL Low 13.0-16.5 [facility] Comment on above: Performed By: #### L 501.0900, L100.0500, L500.2500 #### [facility] [address] [place], [address] MCH (RBC) [Entitic mass] 31.7 pg Normal 27.0-32.0 [facility] Comment on above: Performed By: #### L 501.0900, L100.0500, L500.2500 #### [facility] [address] [place], [address] MCHC (RBC) [Mass/Vol] 31.0 g/dL Low 32-36 [facility] Comment on above: Performed By: #### L 501.0900, L100.0500, L500.2500 #### [facility] [address] [place], [address] MCV (RBC) [Entitic vol] 102.3 fL High 80-94 [facility] Comment on above: Performed By: #### L 501.0900, L100.0500, L500.2500 #### [facility] [address] [place], [address] Platelet mean volume (Bld) [Entitic vol] 11.6 fL Normal 6.2-12.0 [facility] Comment on above: Performed By: #### L 501.0900, L100.0500, L500.2500 #### [facility] [address] [place], [address] Platelets (Bld) [#/Vol] 183 10*3/uL Normal 150-450 [facility] Comment on above: Performed By: #### L 501.0900, L100.0500, L500.2500 #### [facility] [address] [place], [address] RBC (Bld) [#/Vol] 3.06 10*6/uL Low 4.6-6.2 [facility] Comment on above: Performed By: #### L 501.0900, L100.0500, L500.2500 #### [facility] [address] [place], [address] RDW SD 49.5 fl High 35.1-43.9 [facility] Comment on above: Performed By: #### L 501.0900, L100.0500, L500.2500 #### [facility] [address] [place], [address] WBC (Bld) [#/Vol] 4.7 10*3/uL Normal 4.4-11.0 [facility] Comment on above: Performed By: #### L 501.0900, L100.0500, L500.2500 #### [facility] [address] [place], [address] Protein+Creatinine Ratio,Uri neon 08-08-2025 PROT:CRE RATIO 275 mg/g CRE High 0-200 [facility] Comment on above: Performed By: #### L 501.0900, L100.0500, L500.2500 #### [facility] [address] [place], [address] Protein (U) [Mass/Vol] 29.1 mg/dL High 0.0-12.0 [facility] Comment on above: Performed By: #### L 501.0900, L100.0500, L500.2500 #### [facility] [address] [place], [address] UR CREAT 106.00 mg/dL Normal 39.00-259.00 [facility] Comment on above: Performed By: #### L 501.0900, L100.0500, L500.2500 #### [facility] [address] [place], [address] Anion gap in Serum or Plasma Ordered By: Baljeet Donaldson on 03-14-2025 Anion gap [Moles/Vol] 10 mmol/L 5-15 [facility] BUN/creatinine ratioOrdered By: Baljeet Donaldson on 03-14-2025 Urea nitrogen/Creatinine [Mass ratio] 12.3 mg/mg 10-20 [facility] Bilirubin, totalOrdered By: Baljeet Donaldson on 03-14-2025 Bilirubin [Mass/Vol] 0.29 mg/dL 0.00-1.30 [facility] Calculated very low density lipoprotein (VLDL) cholesterol measurementOrdered By: Baljeet Donaldson on 03-14-2025 Calculated very low density lipoprotein (VLDL) cholesterol measurement 18 mg/dL 5-40 [facility] Carbon dioxide, total [Moles /volume] in Central venous bloodOrdered By: Baljeet Donaldson on 03-14-2025 CO2 [Moles/Vol] 22.3 mmol/L 21.0-32.0 [facility] Chloride assayOrdered By: Jason Donaldson on 03-14-2025 Chloride [Moles/Vol] 109 mmol/L High 98-108 [facility] Comprehensive Metabolic Prof ilon 03-14-2025 Albumin [Mass/Vol] 4.0 g/dL Normal 3.4-4.8 [facility] Comment on above: Performed By: #### L 500.4050, L500.4100 #### [facility] [address] [place], [address] Albumin/Globulin [Mass ratio] 1.3 {ratio} Normal 0.9-2.4 [facility] Comment on above: Performed By: #### L 500.4050, L500.4100 #### [facility] [address] [place], [address] ALK PHOS 62 U/L Normal 40-129 [facility] Comment on above: Performed By: #### L 500.4050, L500.4100 #### [facility] [address] [place], [address] ALT [Catalytic activity/Vol] 10 U/L Normal <=46 [facility] Comment on above: Performed By: #### L 500.4050, L500.4100 #### [facility] [address] [place], [address] AST [Catalytic activity/Vol] 16 U/L Normal <=37 [facility] Comment on above: Performed By: #### L 500.4050, L500.4100 #### [facility] [address] [place], [address] Bilirubin [Mass/Vol] 0.29 mg/dL Normal 0.00-1.30 [facility] Comment on above: Performed By: #### L 500.4050, L500.4100 #### [facility] [address] [place], [address] BUN/CRE 12.3 RATIO Normal 10-20 [facility] Comment on above: Performed By: #### L 500.4050, L500.4100 #### [facility] [address] [place], [address] Calcium [Mass/Vol] 9.0 mg/dL Normal 7.6-11.0 [facility] Comment on above: Performed By: #### L 500.4050, L500.4100 #### [facility] [address] [place], [address] Chloride [Moles/Vol] 109 mmol/L High 98-108 [facility] Comment on above: Performed By: #### L 500.4050, L500.4100 #### [facility] [address] [place], [address] CO2 [Moles/Vol] 22.3 mmol/L Normal 21.0-32.0 [facility] Comment on above: Performed By: #### L 500.4050, L500.4100 #### [facility] [address] [place], [address] Creatinine [Mass/Vol] 2.60 mg/dL High 0.70-1.20 [facility] Comment on above: Performed By: #### L 500.4050, L500.4100 #### [facility] [address] [place], [address] GAP 10 Normal 5-15 [facility] Comment on above: Performed By: #### L 500.4050, L500.4100 #### [facility] [address] [place], [address] GFR/1.73 sq M.predicted among non-blacks MDRD (S/P/Bld) [Vol rate/Area] 25 mL/min/{1.73_m2} Low >60 [facility] Comment on above: Result Comment: mL/m in/1.73m2 CKD-EPI Creatinine Equation (2020) Performed By: #### L 500.4050, L500.4100 #### [facility] [address] [place], [address] Globulin (S) [Mass/Vol] 3.1 g/dL Normal 2.2-4.2 [facility] Comment on above: Performed By: #### L 500.4050, L500.4100 #### [facility] [address] [place], [address] Glucose [Mass/Vol] 91 mg/dL Normal 70-99 [facility] Comment on above: Performed By: #### L 500.4050, L500.4100 #### [facility] [address] [place], [address] Potassium [Moles/Vol] 4.9 mmol/L Normal 3.3-5.1 [facility] Comment on above: Performed By: #### L 500.4050, L500.4100 #### [facility] [address] [place], [address] Sodium [Moles/Vol] 142 mmol/L Normal 133-145 [facility] Comment on above: Performed By: #### L 500.4050, L500.4100 #### [facility] [address] [place], [address] T PROT 7.0 g/dL Normal 5.9-8.4 [facility] Comment on above: Performed By: #### L 500.4050, L500.4100 #### [facility] [address] [place], [address] Urea nitrogen [Mass/Vol] 32 mg/dL High 4-19 [facility] Comment on above: Performed By: #### L 500.4050, L500.4100 #### [facility] [address] [place], [place], [address] Glomerular filtration rate ( GFR) estimation/1.73 sq m using serum, plasma, or whole bOrdered By: Baljeet Donaldson on 03-14-2025 GFR/1.73 sq M.predicted among non-blacks MDRD (S/P/Bld) [Vol rate/Area] 25 mL/min/{1.73_m2} Low >60 [facility] Comment on above: mL/min/1.73m2 CKD-EP I Creatinine Equation (2020) LDL calc ser/plasOrdered By: Baljeet Donaldson on 03-14-2025 Cholesterol in LDL [Mass/Vol] 123 mg/dL [facility] Comment on above: Zuuyaqhxnj=087-673 m g/dL & Higher Ntjt=319 mg/dL or greater Laboratory - Chemistry and C hemistry - challengeOrdered By: Baljeet Donaldson on 03-14-2025 AST [Catalytic activity/Vol] 16 U/L <38 [facility] Lipid Profileon 03-14-2025 CHOL:HDL 4.44 Normal [facility] Comment on above: Performed By: #### L 500.4050, L500.4100 #### [facility] [address] [place], [place], [id number] [phone] Cholesterol [Mass/Vol] 182 mg/dL Normal <=200 [facility] Comment on above: Result Comment: Chol esterol level, Desirable <200 mg/dL Borderline high cholesterol 200-239 mg/dL High cholesterol >=240 mg/dL Recommendations of the NCEP Adult Treatment Panel for the following risk-cutoff thresholds for the [place] population. Performed By: #### L 500.4050, L500.4100 #### [facility] [address] [place], [address] Cholesterol in HDL [Mass/Vol] 41 mg/dL Normal [facility] Comment on above: Result Comment: [place] Cholesterol Education Program (NCEP) guidelines: <40 mg/dL: Low HDL-cholesterol (major risk factor for CHD) >= 60 mg/dL: High HDL-cholesterol (negative risk factor for CHD) HDL-cholesterol is affected by a number of factors, e.g. smoking, exercise, hormones, sex and age. Performed By: #### L 500.4050, L500.4100 #### [facility] [address] [place], [address] Cholesterol in LDL [Mass/Vol] 123 mg/dL Normal [facility] Comment on above: Result Comment: Bord tposac=637-202 mg/dL Higher Rmrb=249 mg/dL or greater Performed By: #### L 500.4050, L500.4100 #### [facility] [address] [place], [address] Cholesterol in VLDL [Mass/Vol] 18 mg/dL Normal 5-40 [facility] Comment on above: Performed By: #### L 500.4050, L500.4100 #### [facility] [address] [place], [address] Triglyceride [Mass/Vol] 89 mg/dL Normal [facility] Comment on above: Result Comment: The drugs N-Acetylcysteine and Metamizole may falsely depress this assay. Normal range: <150 mg/dL Borderline High: 150-199 mg/dL High: 200-499 mg/dL Very High: >500 mg/dL Performed By: #### L 500.4050, L500.4100 #### [facility] [address] [place], [address] Potassium measurement (mass/ volume)Ordered By: Baljeet Donaldson on 03-14-2025 Potassium (Unsp spec) [Mass/Vol] 4.9 mmol/L 3.3-5.1 [facility] Screening total cholesterol/ high density lipoprotein (HDL) cholesterol ratioOrdered By: Baljeet Donaldson on 03-14-2025 Cholesterol.total/Ramona sterol in HDL [Mass ratio] 4.44 {ratio} [facility] Serum creatinine measurement (mass/volume)Ordered By: Baljeet Donaldson on 03-14-2025 Creatinine [Mass/Vol] 2.60 mg/dL High 0.70-1.20 [facility] Serum globulin measurementOr dered By: Baljeet Donaldson on 03-14-2025 Globulin (S) [Mass/Vol] 3.1 g/dL 2.2-4.2 [facility] Serum glucose measurement (m ass/volume)Ordered By: Baljeet Donaldson on 03-14-2025 Glucose [Mass/Vol] 91 mg/dL 70-99 [facility] Serum or plasma alanine moody otransferase (ALT) measurementOrdered By: Baljeet Donaldson on 03-14-2025 ALT [Catalytic activity/Vol] 10 U/L <47 [facility] Serum or plasma albumin herman urement (mass/volume)Ordered By: Baljeet Donaldson on 03-14-2025 Albumin [Mass/Vol] 4.0 g/dL 3.4-4.8 [facility] Serum or plasma albumin/glob ulin mass ratioOrdered By: Baljeet Donaldson on 03-14-2025 Albumin/Globulin [Mass ratio] 1.3 {ratio} 0.9-2.4 [facility] Serum or plasma alkaline summer sphatase measurementOrdered By: Baljeet Donaldson on 03-14-2025 ALP [Catalytic activity/Vol] 62 U/L 40-129 [facility] Serum or plasma calcium herman urement (mass/volume)Ordered By: Baljeet Donaldson on 03-14-2025 Calcium [Mass/Vol] 9.0 mg/dL 7.6-11.0 [facility] Serum or plasma cholesterol in HDL measurement (mass/volume)Ordered By: Baljeet Donaldson on 03-14-2025 Cholesterol in HDL [Mass/Vol] 41 mg/dL >40 [facility] Comment on above: National Cholesterol Education Program (NCEP) guidelines:<40 mg/dL: Low HDL-cholesterol (major risk factor for CHD)>= 60 mg/dL: High HDL-cholesterol (negative risk factor for CHD)HDL-cholesterol is affected by a number of factors, e.g. smoking, exercise, hormones, sex and age. Serum or plasma cholesterol measurement (mass/volume)Ordered By: Baljeet Donaldson on 03-14-2025 Cholesterol [Mass/Vol] 182 mg/dL <201 [facility] Comment on above: Cholesterol level, D esirable <200 mg/dLBorderline high cholesterol 200-239 mg/dLHigh cholesterol >=240 mg/dLRecommendations of the NCEP Adult Treatment Panel for the following risk-cutoff thresholds for the [place] population. Serum or plasma urea nitroge n measurement (mass/volume)Ordered By: Baljeet Donaldson on 03-14-2025 Urea nitrogen [Mass/Vol] 32 mg/dL High 4-19 [facility] Sodium levelOrdered By: Baljeet Donaldson on 03-14-2025 Sodium [Moles/Vol] 142 mmol/L 133-145 [facility] Total proteinOrdered By: Shelly Donaldson on 03-14-2025 Protein [Mass/Vol] 7.0 g/dL 5.9-8.4 [facility] Triglycerides measurementOrd ered By: Baljeet Donaldson on 03-14-2025 Triglyceride [Mass/Vol] 89 mg/dL <199 [facility] Comment on above: The drugs N-Acetylcy steine and Metamizole may falsely depress this assay. Normal range: <150 mg/dLBorderline High: 150-199 mg/dLHigh: 200-499 mg/dLVery High: >500 mg/dL Anion gap in Serum or Plasma Ordered By: George Forrest on 02-01-2025 Anion gap [Moles/Vol] 10 mmol/L 5-15 [facility] BUN/creatinine ratioOrdered By: George Forrest on 02-01-2025 Urea nitrogen/Creatinine [Mass ratio] 14.6 mg/mg 10-20 [facility] Carbon dioxide, total [Moles /volume] in Central venous bloodOrdered By: George Forrest on 02-01-2025 CO2 [Moles/Vol] 20.4 mmol/L Low 21.0-32.0 [facility] Chloride assayOrdered By: Angel Forrest on 02-01-2025 Chloride [Moles/Vol] 108 mmol/L 98-108 [facility] Creatinine Unsp time (U) [Ma ss/Vol]Ordered By: George Forrest on 02-01-2025 Creatinine (U) [Mass/Vol] 64.10 mg/dL 39.00-259.00 [facility] GFR/1.73 sq M.predicted chuck g non-blacks MDRD (S/P/Bld) [Vol rate/Area]Ordered By: George Forrest on 02-01-2025 Estimated GFR (MDRD) Non-Af Amer 28 Low >60 [facility] Comment on above: mL/min/1.73m2 CKD-EP I Creatinine Equation (2020) Glomerular filtration rate ( GFR) estimation/1.73 sq m using serum, plasma, or whole bOrdered By: George Forrest on 02-01-2025 GFR/1.73 sq M.predicted among non-blacks MDRD (S/P/Bld) [Vol rate/Area] 28 mL/min/{1.73_m2} Low >60 [facility] Comment on above: mL/min/1.73m2 CKD-EP I Creatinine Equation (2020) Potassium (Unsp spec) [Mass/ Vol]Ordered By: George Forrest on 02-01-2025 Potassium [Moles/Vol] 5.0 mmol/L 3.3-5.1 [facility] Potassium measurement (mass/ volume)Ordered By: George Forrest on 02-01-2025 Potassium (Unsp spec) [Mass/Vol] 5.0 mmol/L 3.3-5.1 [facility] Protein+Creatinine Ratio,Uri neon 02-01-2025 PROT:CRE RATIO 312 mg/g CRE High 0-200 [facility] Comment on above: Performed By: #### L 501.0900, L500.3600 #### [facility] [address] [place], [address] Protein (U) [Mass/Vol] 20.0 mg/dL High 0.0-12.0 [facility] Comment on above: Performed By: #### L 501.0900, L500.3600 #### [facility] [address] [place], [address] UR CREAT 64.10 mg/dL Normal 39.00-259.00 [facility] Comment on above: Performed By: #### L 501.0900, L500.3600 #### [facility] [address] [place], [address] Protein/Creatinine (U) [Mass ratio]Ordered By: George Forrest on 02-01-2025 Urine Protein/Creatinine Ratio 312 mg/g CRE High 0-200 [facility] Random urine creatinine herman urement (mass/volume)Ordered By: George Forrest on 02-01-2025 Creatinine Unsp time (U) [Mass/Vol] 64.10 mg/dL 39.00-259.00 [facility] Renal Profileon 02-01-2025 Albumin [Mass/Vol] 4.0 g/dL Normal 3.4-4.8 [facility] Comment on above: Performed By: #### L 501.0900, L500.3600 #### [facility] [address] [place] [place], [address] BUN/CRE 14.6 RATIO Normal 10-20 [facility] Comment on above: Performed By: #### L 501.0900, L500.3600 #### [facility] [address] [place], [address] Calcium [Mass/Vol] 9.1 mg/dL Normal 7.6-11.0 [facility] Comment on above: Performed By: #### L 501.0900, L500.3600 #### [facility] [address] [place], [address] Chloride [Moles/Vol] 108 mmol/L Normal 98-108 [facility] Comment on above: Performed By: #### L 501.0900, L500.3600 #### [facility] [address] [place], [address] CO2 [Moles/Vol] 20.4 mmol/L Low 21.0-32.0 [facility] Comment on above: Performed By: #### L 501.0900, L500.3600 #### [facility] [address] [place], [address] Creatinine [Mass/Vol] 2.39 mg/dL High 0.70-1.20 [facility] Comment on above: Performed By: #### L 501.0900, L500.3600 #### [facility] [address] [place], [address] GAP 10 Normal 5-15 [facility] Comment on above: Performed By: #### L 501.0900, L500.3600 #### [facility] [address] [place], [address] GFR/1.73 sq M.predicted among non-blacks MDRD (S/P/Bld) [Vol rate/Area] 28 mL/min/{1.73_m2} Low >60 [facility] Comment on above: Result Comment: mL/m in/1.73m2 CKD-EPI Creatinine Equation (2020) Performed By: #### L 501.0900, L500.3600 #### [facility] [address] [place], [address] Glucose [Mass/Vol] 100 mg/dL High 70-99 [facility] Comment on above: Performed By: #### L 501.0900, L500.3600 #### [facility] [address] [place], [address] Phosphate [Mass/Vol] 3.7 mg/dL Normal 2.7-4.5 [facility] Comment on above: Performed By: #### L 501.0900, L500.3600 #### [facility] [address] [place], [address] Potassium [Moles/Vol] 5.0 mmol/L Normal 3.3-5.1 [facility] Comment on above: Performed By: #### L 501.0900, L500.3600 #### [facility] [address] [place], [address] Sodium [Moles/Vol] 139 mmol/L Normal 133-145 [facility] Comment on above: Performed By: #### L 501.0900, L500.3600 #### [facility] [address] [place], [address] Urea nitrogen [Mass/Vol] 35 mg/dL High - [facility] Comment on above: Performed By: #### L 501.0900, L500.3600 #### [facility] [address] [place], [address] Serum creatinine measurement (mass/volume)Ordered By: George Forrest on 02-01-2025 Creatinine [Mass/Vol] 2.39 mg/dL High 0.70-1.20 [facility] Serum glucose measurement (m ass/volume)Ordered By: George Forrest on 02-01-2025 Glucose [Mass/Vol] 100 mg/dL High 70-99 [facility] Serum or plasma albumin herman urement (mass/volume)Ordered By: George Forrest on 02-01-2025 Albumin [Mass/Vol] 4.0 g/dL 3.4-4.8 [facility] Serum or plasma calcium herman urement (mass/volume)Ordered By: George Forrest on 02-01-2025 Calcium [Mass/Vol] 9.1 mg/dL 7.6-11.0 [facility] Serum or plasma urea nitroge n measurement (mass/volume)Ordered By: George Forrest on 02-01-2025 Urea nitrogen [Mass/Vol] 35 mg/dL High 02-25 [facility] Serum phosphorus measurement Ordered By: George Forrest on 02-01-2025 Phosphorus Level 3.7 mg/dL 2.7-4.5 [facility] Sodium levelOrdered By: Zohaib Forrest on 02-01-2025 Sodium [Moles/Vol] 139 mmol/L 133-145 [facility] Urine protein measurement (m ass/volume)Ordered By: George Forerst on 02-01-2025 Protein (U) [Mass/Vol] 20.0 mg/dL High 0.0-12.0 [facility] Urine protein/creatinine mas s ratioOrdered By: George Forrest on 02-01-2025 Protein/Creatinine (U) [Mass ratio] 312 mg/g CRE High 0-200 [facility] Basophil percentageOrdered B y: Baljeet Donaldson on 03-14-2024 Basophil percentage 3.49 ng/mL 0.0-4.0 [facility] Comment on above: This test was perfor med using the TPSA assay method for the[employer] chemistry system. Values obtained with differentassay methods cannot be used interchangably.When changing PSA assays in the course of monitoring apatient, additional sequential testing should be carriedout to confirm baseline values. Basophil percentageOrdered B y: George Forrest on 02-09-2024 Basophil percentage 3.9 mg/dL 2.5-4.9 [facility] Chloride [Moles/Vol] 110 mmol/L 98-107 [facility] Glucose [Mass/Vol] 100 mg/dL 74-106 [facility] Comment on above: Fasting Glucose resu lt from 100 to 125 mg/dL suggests IMPAIRED HOMEOSTASIS per A.D.A. criteria. Hemoglobin (Bld) [Mass/Vol] 10.7 g/dL 13.0-16.5 [facility] Potassium [Moles/Vol] 4.4 mmol/L 3.5-5.1 [facility] Sodium [Moles/Vol] 140 mmol/L 136-145 [facility] WBC (Bld) [#/Vol] 5.3 10*3/uL 4.4-11.0 [facility] Determination of erythrocyte mean corpuscular volume (MCV)Ordered By: George Forrest on 02-09-2024 MCV (RBC) [Entitic vol] 99.4 fL 80-94 [facility] Erythrocyte distribution wid th ratioOrdered By: George Forrest on 02-09-2024 Erythrocyte distribution width (RBC) [Ratio] 13.2 % 11.6-14.6 [facility] Erythrocyte distribution wid th standard deviationOrdered By: George Forrest on 02-09-2024 Erythrocyte distribution width (RBC) [Entitic vol] 48.5 fL 35.1-43.9 [facility] Hematocrit Auto (Bld) [Volum e fraction]Ordered By: George Forrest on 02-09-2024 Hematocrit (Bld) [Volume fraction] 33.9 % 40-54 [facility] Laboratory - Chemistry and C hemistry - challengeOrdered By: George Forrest on 02-09-2024 CO2 [Moles/Vol] 22.0 mmol/L 21.0-32.0 [facility] Urea nitrogen/Creatinine [Mass ratio] 15.8 mg/mg 10-20 [facility] - Hematology and Cell countsOrdered By: George Forrest on 02-09-2024 MCH (RBC) [Entitic mass] 31.4 pg 27.0-32.0 [facility] MCHC (RBC) [Mass/Vol] 31.6 g/dL 32-36 [facility] Platelet mean volume (Bld) [Entitic vol] 10.5 fL 6.2-12.0 [facility] Platelets (Bld) [#/Vol] 180 10*3/uL 150-450 [facility] No Panel InformationOrdered By: George Forrest on 02-09-2024 Estimated GFR (MDRD) Amer 31 mL/min >60 [facility] Comment on above: GFR Calc Estimated GFR (MDRD) Non-Af Amer 25 mL/min >60 [facility] Comment on above: Non- GFR Calc RBC Auto (Bld) [#/Vol]Ordere d By: George Forrest on 02-09-2024 RBC (Bld) [#/Vol] 3.41 10*6/uL 4.6-6.2 [facility] Serum or plasma calcium herman urement (mass/volume)Ordered By: George Forrest on 02-09-2024 Calcium [Mass/Vol] 8.9 mg/dL 8.5-10.1 [facility] Serum or plasma creatinine m easurement (mass/volume)Ordered By: George Forrest on 02-09-2024 Creatinine [Mass/Vol] 2.65 mg/dL 0.70-1.30 [facility] Comment on above: The validity of the calculated GFR & GFRAA in patients over 70 years has not been determined. Clinical correlation is essential. Serum or plasma urea nitroge n measurement (mass/volume)Ordered By: George Forrest on 02-09-2024 Urea nitrogen [Mass/Vol] 42 mg/dL 7-18 [facility] Thin prep Papanicolaou smear with manual screeningOrdered By: George Forrest on 02-09-2024 Protein (U) [Mass/Vol] 24.2 mg/dL 0.0-11.8 [facility] Thin prep Papanicolaou smear with manual screening 3.7 g/dL 3.2-5.0 [facility] Urine creatinine measurement (mass/volume)Ordered By: George Forrest on 02-09-2024 Creatinine (U) [Mass/Vol] 73.30 mg/dL NO RANGE EST. [facility] Urine protein/creatinine mas s ratioOrdered By: George Forrest on 02-09-2024 Protein/Creatinine (U) [Mass ratio] 330 mg/g CRE 0-200 [facility] Basophil percentageOrdered B y: Baljeet Donaldson on 09-17-2023 Chloride [Moles/Vol] 111 mmol/L 98-107 [facility] Cholesterol [Mass/Vol] 168 mg/dL <200 [facility] Comment on above: <200 mg/dL Desirable 200-240 mg/dL Borderline >240 mg/dL High Risk Glucose [Mass/Vol] 90 mg/dL 74-106 [facility] Potassium [Moles/Vol] 4.8 mmol/L 3.5-5.1 [facility] Sodium [Moles/Vol] 140 mmol/L 136-145 [facility] Triglyceride [Mass/Vol] 101 mg/dL <199 [facility] Comment on above: The drugs N-Acetylcy steine and Metamizole may falsely depress this assay.Serum Triglycerides Reference Interval Normal <150 mg/dL Borderline high 150 - 199 mg/dL High 200 - 499 mg/dL Very High > or = 500 mg/dL Laboratory - Chemistry and C hemistry - challengeOrdered By: Baljeet Donaldson on 09-17-2023 CO2 [Moles/Vol] 27.0 mmol/L 21.0-32.0 [facility] Urea nitrogen/Creatinine [Mass ratio] 14.3 mg/mg 10-20 [facility] No Panel InformationOrdered By: Baljeet Donaldson on 09-17-2023 Estimated GFR (MDRD) Amer 33 mL/min >60 [facility] Comment on above: GFR Calc Estimated GFR (MDRD) Non-Af Amer 27 mL/min >60 [facility] Comment on above: Non- GFR Calc Serum or plasma calcium herman urement (mass/volume)Ordered By: Baljeet Donaldson on 09-17-2023 Calcium [Mass/Vol] 8.7 mg/dL 8.5-10.1 [facility] Serum or plasma cholesterol in HDL measurement (mass/volume)Ordered By: Baljeet Donaldson on 09-17-2023 Cholesterol in HDL [Mass/Vol] 36 mg/dL >40 [facility] Comment on above: The drugs N-Acetylcy steine and Metamizole may falsely depress this assay. Reference Range HDL <40 mg/dL Low HDL Cholesterol HDL >or= 60 mg/dL High HDL Cholesterol Serum or plasma cholesterol in VLDL measurement (mass/volume)Ordered By: Baljeet Donaldson on 09-17-2023 Cholesterol in VLDL [Mass/Vol] 20 mg/dL 5-40 [facility] Serum or plasma creatinine m easurement (mass/volume)Ordered By: Baljeet Donaldson on 09-17-2023 Creatinine [Mass/Vol] 2.51 mg/dL 0.70-1.30 [facility] Comment on above: The validity of the calculated GFR & GFRAA in patients over 70 years has not been determined. Clinical correlation is essential. Serum or plasma low density lipoprotein (LDL) cholesterol measurement (mass/volume)Ordered By: Baljeet Donaldson on 09-17-2023 Cholesterol in LDL [Mass/Vol] 112 mg/dL 0-130 [facility] Serum or plasma urea nitroge n measurement (mass/volume)Ordered By: Baljeet Donaldson on 09-17-2023 Urea nitrogen [Mass/Vol] 36 mg/dL 7-18 [facility] Thin prep Papanicolaou smear with manual screeningOrdered By: Baljeet Donaldson on 09-17-2023 Thin prep Papanicolaou smear with manual screening 2 5-15 [facility] Basophil percentageOrdered B y: George Forrest on 07-27-2023 Basophil percentage 3.9 mg/dL 2.5-4.9 [facility] Chloride [Moles/Vol] 110 mmol/L 98-107 [facility] Glucose [Mass/Vol] 100 mg/dL 74-106 [facility] Comment on above: Fasting Glucose resu lt from 100 to 125 mg/dL suggests IMPAIRED HOMEOSTASIS per A.D.A. criteria. Potassium [Moles/Vol] 4.7 mmol/L 3.5-5.1 [facility] Sodium [Moles/Vol] 141 mmol/L 136-145 [facility] WBC (Bld) [#/Vol] 4.7 10*3/uL 4.4-11.0 [facility] Blood erythrocytes count (nu mber/volume)Ordered By: George Forrest on 07-27-2023 RBC (Bld) [#/Vol] 3.49 10*6/uL 4.6-6.2 [facility] Blood hemoglobin measurement (mass/volume)Ordered By: George Forrest on 07-27-2023 Hemoglobin (Bld) [Mass/Vol] 10.9 g/dL 13.0-16.5 [facility] Blood platelet mean volumeOr dered By: George Forrest on 07-27-2023 Platelet mean volume (Bld) [Entitic vol] 11.3 fL 6.2-12.0 [facility] Determination of erythrocyte mean corpuscular volume (MCV)Ordered By: George Forrest on 07-27-2023 MCV (RBC) [Entitic vol] 101.1 fL 80-94 [facility] Hematocrit Auto (Bld) [Volum e fraction]Ordered By: George Forrest on 07-27-2023 Hematocrit (Bld) [Volume fraction] 35.3 % 40-54 [facility] - Chemistry and C hemistry - challengeOrdered By: George Forrest on 07-27-2023 CO2 [Moles/Vol] 22.0 mmol/L 21.0-32.0 [facility] Urea nitrogen/Creatinine [Mass ratio] 15.4 mg/mg 10-20 [facility] - Hematology and Cell countsOrdered By: George Forrest on 07-27-2023 Erythrocyte distribution width (RBC) [Entitic vol] 48.2 fL 35.1-43.9 [facility] Erythrocyte distribution width (RBC) [Ratio] 13.1 % 11.6-14.6 [facility] MCH (RBC) [Entitic mass] 31.2 pg 27.0-32.0 [facility] MCHC Auto (RBC) [Mass/Vol]Or dered By: George Forrest on 07-27-2023 MCHC (RBC) [Mass/Vol] 30.9 g/dL 32-36 [facility] No Panel InformationOrdered By: George Forrest on 07-27-2023 Estimated GFR (MDRD) Amer 33 mL/min >60 [facility] Comment on above: GFR Calc Estimated GFR (MDRD) Non-Af Amer 27 mL/min >60 [facility] Comment on above: Non- GFR Calc Parathyroid Hormone (Intact) 60.0 pg/mL 18.4-80.1 [facility] Vitamin D 25-Hydroxy 59.9 ng/mL [facility] Comment on above: Vitamin D 25(OH) Sta tus Range Deficiency <20 ng/mL (50nmol/L) Insufficiency 20 - 30 ng/mL (50 - 75 nmol/L) Sufficiency 30 - 100 ng/mL (75 - 250 nmol/L) Toxicity >100 ng/mL (>250 nmol/L) Platelets bldOrdered By: Noah Forrest on 07-27-2023 Platelets (Bld) [#/Vol] 170 10*3/uL 150-450 [facility] Serum or plasma albumin herman urement (mass/volume)Ordered By: George Forrest on 07-27-2023 Albumin [Mass/Vol] 3.9 g/dL 3.2-5.0 [facility] Serum or plasma calcium herman urement (mass/volume)Ordered By: George Forrest on 07-27-2023 Calcium [Mass/Vol] 9.0 mg/dL 8.5-10.1 [facility] Serum or plasma creatinine m easurement (mass/volume)Ordered By: George Forrest on 07-27-2023 Creatinine [Mass/Vol] 2.47 mg/dL 0.70-1.30 [facility] Comment on above: The validity of the calculated GFR & GFRAA in patients over 70 years has not been determined. Clinical correlation is essential. Serum or plasma urea nitroge n measurement (mass/volume)Ordered By: George Forrest on 07-27-2023 Urea nitrogen [Mass/Vol] 38 mg/dL 05-26 [facility] Urine creatinine measurement (mass/volume)Ordered By: George Forrest on 07-27-2023 Creatinine (U) [Mass/Vol] 63.70 mg/dL NO RANGE EST. [facility] Urine protein measurement (m ass/volume)Ordered By: George Forrest on 07-27-2023 Protein (U) [Mass/Vol] 18.7 mg/dL 0.0-11.8 [facility] Urine protein/creatinine mas s ratioOrdered By: George Forrest on 07-27-2023 Protein/Creatinine (U) [Mass ratio] 294 mg/g CRE 0-200 [facility] Basophil percentageOrdered B y: Dr. Donaldson on 03-16-2023 Chloride [Moles/Vol] 114 mmol/L 98-107 [facility] Cholesterol [Mass/Vol] 165 mg/dL <200 [facility] Comment on above: <200 mg/dL Desirable 200-240 mg/dL Borderline >240 mg/dL High Risk Glucose [Mass/Vol] 99 mg/dL 74-106 [facility] Potassium [Moles/Vol] 5.1 mmol/L 3.5-5.1 [facility] Sodium [Moles/Vol] 139 mmol/L 136-145 [facility] Triglyceride [Mass/Vol] 94 mg/dL <199 [facility] Comment on above: The drugs N-Acetylcy steine and Metamizole may falsely depress this assay.Serum Triglycerides Reference Interval Normal <150 mg/dL Borderline high 150 - 199 mg/dL High 200 - 499 mg/dL Very High > or = 500 mg/dL Laboratory - Chemistry and C hemistry - challengeOrdered By: Dr. Donaldson on 03-16-2023 CO2 [Moles/Vol] 21.0 mmol/L 21.0-32.0 [facility] Urea nitrogen/Creatinine [Mass ratio] 18.1 mg/mg 10-20 [facility] No Panel InformationOrdered By: Dr. Donaldson on 03-16-2023 Estimated GFR (MDRD) Amer 30 mL/min >60 [facility] Comment on above: GFR Calc Estimated GFR (MDRD) Non-Af Amer 25 mL/min >60 [facility] Comment on above: Non- GFR Calc Serum or plasma calcium herman urement (mass/volume)Ordered By: Dr. Donaldson on 03-16-2023 Calcium [Mass/Vol] 8.4 mg/dL 8.5-10.1 [facility] Serum or plasma cholesterol in HDL measurement (mass/volume)Ordered By: Dr. Donaldson on 03-16-2023 Cholesterol in HDL [Mass/Vol] 39 mg/dL >40 [facility] Comment on above: The drugs N-Acetylcy steine and Metamizole may falsely depress this assay. Reference Range HDL <40 mg/dL Low HDL Cholesterol HDL >or= 60 mg/dL High HDL Cholesterol Serum or plasma cholesterol in VLDL measurement (mass/volume)Ordered By: Dr. Donaldson on 03-16-2023 Cholesterol in VLDL [Mass/Vol] 19 mg/dL 5-40 [facility] Serum or plasma creatinine m easurement (mass/volume)Ordered By: Dr. Donaldson on 03-16-2023 Creatinine [Mass/Vol] 2.70 mg/dL 0.70-1.30 [facility] Comment on above: The validity of the calculated GFR & GFRAA in patients over 70 years has not been determined. Clinical correlation is essential. Serum or plasma low density lipoprotein (LDL) cholesterol measurement (mass/volume)Ordered By: Dr. Donaldson on 03-16-2023 Cholesterol in LDL [Mass/Vol] 107 mg/dL 0-130 [facility] Serum or plasma urea nitroge n measurement (mass/volume)Ordered By: Dr. Donaldson on 03-16-2023 Urea nitrogen [Mass/Vol] 49 mg/dL 7-18 [facility] Thin prep Papanicolaou smear with manual screeningOrdered By: Dr. Donaldson on 03-16-2023 Thin prep Papanicolaou smear with manual screening 4 5-15 [facility] Basophil percentageOrdered B y: Dr. Tello on 01-13-2023 Basophil percentage 4.1 mg/dL 2.5-4.9 [facility] Chloride [Moles/Vol] 112 mmol/L 98-107 [facility] Glucose [Mass/Vol] 100 mg/dL 74-106 [facility] Comment on above: Fasting Glucose resu lt from 100 to 125 mg/dL suggests IMPAIRED HOMEOSTASIS per A.D.A. criteria. Potassium [Moles/Vol] 4.6 mmol/L 3.5-5.1 [facility] Sodium [Moles/Vol] 145 mmol/L 136-145 [facility] WBC (Bld) [#/Vol] 5.0 10*3/uL 4.4-11.0 [facility] Blood erythrocytes count (nu mber/volume)Ordered By: Dr. Tello on 01-13-2023 RBC (Bld) [#/Vol] 3.64 10*6/uL 4.6-6.2 [facility] Blood hemoglobin measurement (mass/volume)Ordered By: Dr. Tello on 01-13-2023 Hemoglobin (Bld) [Mass/Vol] 11.5 g/dL 13.0-16.5 [facility] Blood platelet mean volumeOr dered By: Dr. Tello on 01-13-2023 Platelet mean volume (Bld) [Entitic vol] 11.1 fL 6.2-12.0 [facility] Determination of erythrocyte mean corpuscular volume (MCV)Ordered By: Dr. Tello on 01-13-2023 MCV (RBC) [Entitic vol] 102.2 fL 80-94 [facility] Hematocrit Auto (Bld) [Volum e fraction]Ordered By: Dr. Tello on 01-13-2023 Hematocrit (Bld) [Volume fraction] 37.2 % 40-54 [facility] Iron measurement (mass/mass) Ordered By: Dr. Tello on 01-13-2023 Iron (Unsp spec) [Mass/Mass] 71 ug/dL 65-175 [facility] - Chemistry and C hemistry - challengeOrdered By: Dr. Tello on 01-13-2023 CO2 [Moles/Vol] 25.0 mmol/L 21.0-32.0 [facility] Magnesium [Mass/Vol] 2.4 mg/dL 1.6-2.6 [facility] Urea nitrogen/Creatinine [Mass ratio] 15.9 mg/mg 10-20 [facility] - Hematology and Cell countsOrdered By: Dr. Tello on 01-13-2023 Erythrocyte distribution width (RBC) [Entitic vol] 50.3 fL 35.1-43.9 [facility] Erythrocyte distribution width (RBC) [Ratio] 13.4 % 11.6-14.6 [facility] MCH (RBC) [Entitic mass] 31.6 pg 27.0-32.0 [facility] MCHC Auto (RBC) [Mass/Vol]Or dered By: Dr. Tello on 01-13-2023 MCHC (RBC) [Mass/Vol] 30.9 g/dL 32-36 [facility] No Panel InformationOrdered By: Dr. Tello on 01-13-2023 Estimated GFR (MDRD) Amer 34 mL/min >60 [facility] Comment on above: GFR Calc Estimated GFR (MDRD) Non-Af Amer 29 mL/min >60 [facility] Comment on above: Non- GFR Calc Parathyroid Hormone (Intact) 100.1 pg/mL 18.4-80.1 [facility] Total Iron Binding Capacity 242 ug/dL 250-450 [facility] Urine Microalbumin/Creatinine Ratio 92.2 mg/g CRE <30 [facility] Vitamin D 25-Hydroxy 51.1 ng/mL [facility] Comment on above: Vitamin D 25(OH) Sta tus Range Deficiency <20 ng/mL (50nmol/L) Insufficiency 20 - 30 ng/mL (50 - 75 nmol/L) Sufficiency 30 - 100 ng/mL (75 - 250 nmol/L) Toxicity >100 ng/mL (>250 nmol/L) Platelets bldOrdered By: Dr. Tello on 01-13-2023 Platelets (Bld) [#/Vol] 190 10*3/uL 150-450 [facility] Serum or plasma albumin herman urement (mass/volume)Ordered By: Dr. Tello on 01-13-2023 Albumin [Mass/Vol] 3.7 g/dL 3.2-5.0 [facility] Serum or plasma calcium herman urement (mass/volume)Ordered By: Dr. Tello on 01-13-2023 Calcium [Mass/Vol] 8.8 mg/dL 8.5-10.1 [facility] Serum or plasma creatinine m easurement (mass/volume)Ordered By: Dr. Tello on 01-13-2023 Creatinine [Mass/Vol] 2.39 mg/dL 0.70-1.30 [facility] Comment on above: The validity of the calculated GFR & GFRAA in patients over 70 years has not been determined. Clinical correlation is essential. Serum or plasma ferritin blessing surement (mass/volume)Ordered By: Dr. Tello on 01-13-2023 Ferritin [Mass/Vol] 86 ng/mL 26-388 [facility] Serum or plasma iron saturat ion measurement (mass fraction)Ordered By: Dr. Tello on 01-13-2023 Iron saturation [Mass fraction] 29.3 % 15.0-55.0 [facility] Serum or plasma urea nitroge n measurement (mass/volume)Ordered By: Dr. Tello on 01-13-2023 Urea nitrogen [Mass/Vol] 38 mg/dL 7-18 [facility] Thin prep Papanicolaou smear with manual screeningOrdered By: Dr. Tello on 01-13-2023 Thin prep Papanicolaou smear with manual screening 88.9 mg/L NO RANGE EST. [facility] Urine creatinine measurement (mass/volume)Ordered By: Dr. Tello on 01-13-2023 Creatinine (U) [Mass/Vol] 96.40 mg/dL NO RANGE EST. [facility] Basophil percentageOrdered B y: Dr. Tello on 10-13-2022 Basophil percentage 3.5 mg/dL 2.5-4.9 [facility] Chloride [Moles/Vol] 112 mmol/L 98-107 [facility] Glucose [Mass/Vol] 95 mg/dL 74-106 [facility] Potassium [Moles/Vol] 5.2 mmol/L 3.5-5.1 [facility] Sodium [Moles/Vol] 140 mmol/L 136-145 [facility] WBC (Bld) [#/Vol] 4.5 10*3/uL 4.4-11.0 [facility] Blood erythrocytes count (nu mber/volume)Ordered By: Dr. Tello on 10-13-2022 RBC (Bld) [#/Vol] 3.87 10*6/uL 4.6-6.2 [facility] Blood hemoglobin measurement (mass/volume)Ordered By: Dr. Tello on 10-13-2022 Hemoglobin (Bld) [Mass/Vol] 11.8 g/dL 13.0-16.5 [facility] Blood platelet mean volumeOr dered By: Dr. Tello on 10-13-2022 Platelet mean volume (Bld) [Entitic vol] 11.3 fL 6.2-12.0 [facility] Determination of erythrocyte mean corpuscular volume (MCV)Ordered By: Dr. Tello on 10-13-2022 MCV (RBC) [Entitic vol] 99.5 fL 80-94 [facility] Hematocrit Auto (Bld) [Volum e fraction]Ordered By: Dr. Tello on 10-13-2022 Hematocrit (Bld) [Volume fraction] 38.5 % 40-54 [facility] Iron measurement (mass/mass) Ordered By: Dr. Tello on 10-13-2022 Iron (Unsp spec) [Mass/Mass] 55 ug/dL 65-175 [facility] - Chemistry and C hemistry - challengeOrdered By: Dr. Tello on 10-13-2022 CO2 [Moles/Vol] 25.0 mmol/L 21.0-32.0 [facility] Magnesium [Mass/Vol] 2.4 mg/dL 1.6-2.6 [facility] Urea nitrogen/Creatinine [Mass ratio] 13.7 mg/mg 10-20 [facility] - Hematology and Cell countsOrdered By: Dr. Tello on 10-13-2022 Erythrocyte distribution width (RBC) [Entitic vol] 43.8 fL 35.1-43.9 [facility] Erythrocyte distribution width (RBC) [Ratio] 12.0 % 11.6-14.6 [facility] MCH (RBC) [Entitic mass] 30.5 pg 27.0-32.0 [facility] MCHC Auto (RBC) [Mass/Vol]Or dered By: Dr. Tello on 10-13-2022 MCHC (RBC) [Mass/Vol] 30.6 g/dL 32-36 [facility] No Panel InformationOrdered By: Dr. Tello on 10-13-2022 Estimated GFR (MDRD) Amer 33 mL/min >60 [facility] Comment on above: GFR Calc Estimated GFR (MDRD) Non-Af Amer 27 mL/min >60 [facility] Comment on above: Non- GFR Calc Parathyroid Hormone (Intact) 53.8 pg/mL 18.4-80.1 [facility] Total Iron Binding Capacity 186 ug/dL 250-450 [facility] Urine Microalbumin/Creatinine Ratio 90.1 mg/g CRE <30 [facility] Vitamin D 25-Hydroxy 50.5 ng/mL [facility] Comment on above: Vitamin D 25(OH) Sta tus Range Deficiency <20 ng/mL (50nmol/L) Insufficiency 20 - 30 ng/mL (50 - 75 nmol/L) Sufficiency 30 - 100 ng/mL (75 - 250 nmol/L) Toxicity >100 ng/mL (>250 nmol/L) Platelets bldOrdered By: Dr. Tello on 10-13-2022 Platelets (Bld) [#/Vol] 183 10*3/uL 150-450 [facility] Serum or plasma albumin herman urement (mass/volume)Ordered By: Dr. Tello on 10-13-2022 Albumin [Mass/Vol] 3.7 g/dL 3.2-5.0 [facility] Serum or plasma calcium herman urement (mass/volume)Ordered By: Dr. Tello on 10-13-2022 Calcium [Mass/Vol] 9.0 mg/dL 8.5-10.1 [facility] Serum or plasma creatinine m easurement (mass/volume)Ordered By: Dr. Tello on 10-13-2022 Creatinine [Mass/Vol] 2.49 mg/dL 0.70-1.30 [facility] Comment on above: The validity of the calculated GFR & GFRAA in patients over 70 years has not been determined. Clinical correlation is essential. Serum or plasma ferritin blessing surement (mass/volume)Ordered By: Dr. Tello on 10-13-2022 Ferritin [Mass/Vol] 142 ng/mL 26-388 [facility] Serum or plasma urea nitroge n measurement (mass/volume)Ordered By: Dr. Tello on 10-13-2022 Urea nitrogen [Mass/Vol] 34 mg/dL 7-18 [facility] Thin prep Papanicolaou smear with manual screeningOrdered By: Dr. Tello on 10-13-2022 Thin prep Papanicolaou smear with manual screening 51.7 mg/L NO RANGE EST. [facility] Urine creatinine measurement (mass/volume)Ordered By: Dr. Tello on 10-13-2022 Creatinine (U) [Mass/Vol] 57.40 mg/dL NO RANGE EST. [facility] Basophil percentageon 2021 Bilirubin [Mass/Vol] 0.40 mg/dL 0.20-1.00 [facility] Work Phone: Comment on above: For patients on eltr ombopag therapy, use of Dimension [employer] TBIL is not recommended. Chloride [Moles/Vol] 110 mmol/L 98-107 [facility] Work Phone: Cholesterol [Mass/Vol] 157 mg/dL <200 [facility] Work Phone: Comment on above: <200 mg/dL Desirable 200-240 mg/dL Borderline >240 mg/dL High Risk Glucose [Mass/Vol] 90 mg/dL 74-106 [facility] Work Phone: Potassium [Moles/Vol] 4.7 mmol/L 3.5-5.1 [facility] Work Phone: Protein [Mass/Vol] 6.9 g/dL 6.4-8.2 [facility] Work Phone: Sodium [Moles/Vol] 142 mmol/L 136-145 [facility] Work Phone: Triglyceride [Mass/Vol] 65 mg/dL <199 [facility] Work Phone: Comment on above: The drugs N-Acetylcy steine and Metamizole may falsely depress this assay.Serum Triglycerides Reference Interval Normal <150 mg/dL Borderline high 150 - 199 mg/dL High 200 - 499 mg/dL Very High > or = 500 mg/dL WBC (Bld) [#/Vol] 6.1 10*3/uL 4.4-11.0 [facility] Work Phone: Blood erythrocytes count (nu mber/volume)on 09-08-2022 RBC (Bld) [#/Vol] 3.34 10*6/uL 4.6-6.2 [facility] Work Phone: Blood hemoglobin measurement (mass/volume)on 09-08-2022 Hemoglobin (Bld) [Mass/Vol] 10.8 g/dL 13.0-16.5 [facility] Work Phone: Blood platelet mean volumeon 09-08-2022 Platelet mean volume (Bld) [Entitic vol] 11.4 fL 6.2-12.0 [facility] Work Phone: Determination of erythrocyte mean corpuscular volume (MCV)on 09-08-2022 MCV (RBC) [Entitic vol] 100.3 fL 80-94 [facility] Work Phone: Hematocrit Auto (Bld) [Volum e fraction]on 09-08-2022 Hematocrit (Bld) [Volume fraction] 33.5 % 40-54 [facility] Work Phone: Laboratory - Chemistry and C hemistry - challengeon 09-08-2022 ALP [Catalytic activity/Vol] 55 U/L 45-117 [facility] Work Phone: ALT [Catalytic activity/Vol] 15 U/L 16-61 [facility] Work Phone: CO2 [Moles/Vol] 24.0 mmol/L 21.0-32.0 [facility] Work Phone: Globulin (S) [Mass/Vol] 3.4 g/dL 2.2-4.2 [facility] Work Phone: Magnesium [Mass/Vol] 2.4 mg/dL 1.6-2.6 [facility] Work Phone: Urea nitrogen/Creatinine [Mass ratio] 15.6 mg/mg 10-20 [facility] Work Phone: Laboratory - Hematology and Cell countson 09-08-2022 Erythrocyte distribution width (RBC) [Entitic vol] 44.9 fL 35.1-43.9 [facility] Work Phone: Erythrocyte distribution width (RBC) [Ratio] 12.3 % 11.6-14.6 [facility] Work Phone: MCH (RBC) [Entitic mass] 32.3 pg 27.0-32.0 [facility] Work Phone: MCHC Auto (RBC) [Mass/Vol]on 09-08-2022 MCHC (RBC) [Mass/Vol] 32.2 g/dL 32-36 [facility] Work Phone: No Panel Informationon 09-08 Estimated GFR (MDRD) Amer 31 mL/min >60 [facility] Work Phone: Comment on above: GFR Calc Estimated GFR (MDRD) Non-Af Amer 26 mL/min >60 [facility] Work Phone: Comment on above: Non- GFR Calc Parathyroid Hormone (Intact) 71.0 pg/mL 18.4-80.1 [facility] Work Phone: Prostate Specific Antigen Total 5.48 ng/mL 0.0-4.0 [facility] Work Phone: Comment on above: This test was perfor med using the TPSA assay method [facility]. Values obtained with differentassay methods cannot be used interchangably.When changing PSA assays in the course of monitoring apatient, additional sequential testing should be carriedout to confirm baseline values. Urine Microalbumin/Creatinine Ratio 96.9 mg/g CRE <30 [facility] Work Phone: Vitamin D 25-Hydroxy 48.3 ng/mL [facility] Work Phone: Comment on above: Vitamin D 25(OH) Sta tus Range Deficiency <20 ng/mL (50nmol/L) Insufficiency 20 - 30 ng/mL (50 - 75 nmol/L) Sufficiency 30 - 100 ng/mL (75 - 250 nmol/L) Toxicity >100 ng/mL (>250 nmol/L) Platelets bldon 09-08-2022 Platelets (Bld) [#/Vol] 163 10*3/uL 150-450 [facility] Work Phone: Serum or plasma albumin herman urement (mass/volume)on 09-08-2022 Albumin [Mass/Vol] 3.5 g/dL 3.2-5.0 [facility] Work Phone: Serum or plasma albumin/glob ulin mass ratioon 09-08-2022 Albumin/Globulin [Mass ratio] 1.0 {ratio} 0.9-2.4 [facility] Work Phone: Serum or plasma calcium herman urement (mass/volume)on 09-08-2022 Calcium [Mass/Vol] 8.7 mg/dL 8.5-10.1 [facility] Work Phone: Serum or plasma cholesterol in HDL measurement (mass/volume)on 09-08-2022 Cholesterol in HDL [Mass/Vol] 46 mg/dL >40 [facility] Work Phone: Comment on above: The drugs N-Acetylcy steine and Metamizole may falsely depress this assay. Reference Range HDL <40 mg/dL Low HDL Cholesterol HDL >or= 60 mg/dL High HDL Cholesterol Serum or plasma cholesterol in VLDL measurement (mass/volume)on 09-08-2022 Cholesterol in VLDL [Mass/Vol] 13 mg/dL 5-40 [facility] Work Phone: Serum or plasma creatinine m easurement (mass/volume)on 09-08-2022 Creatinine [Mass/Vol] 2.62 mg/dL 0.70-1.30 [facility] Work Phone: Comment on above: The validity of the calculated GFR & GFRAA in patients over 70 years has not been determined. Clinical correlation is essential. Serum or plasma low density lipoprotein (LDL) cholesterol measurement (mass/volume)on 09-08-2022 Cholesterol in LDL [Mass/Vol] 98 mg/dL 0-130 [facility] Work Phone: Serum or plasma urea nitroge n measurement (mass/volume)on 09-08-2022 Urea nitrogen [Mass/Vol] 41 mg/dL 7-18 [facility] Work Phone: Thin prep Papanicolaou smear with manual screeningon 09-08-2022 Thin prep Papanicolaou smear with manual screening 9 U/L 15-37 [facility] Work Phone: Thin prep Papanicolaou smear with manual screening 8 5-15 [facility] Work Phone: Thin prep Papanicolaou smear with manual screening 66.0 mg/L NO RANGE EST. [facility] Work Phone: Urine creatinine measurement (mass/volume)on 09-08-2022 Creatinine (U) [Mass/Vol] 68.10 mg/dL NO RANGE EST. [facility] Work Phone: Basophil percentageon 2021 Basophil percentage 3.6 mg/dL 2.5-4.9 [facility] Work Phone: Chloride [Moles/Vol] 112 mmol/L 98-107 [facility] Work Phone: Cholesterol [Mass/Vol] 172 mg/dL <200 [facility] Work Phone: Comment on above: <200 mg/dL Desirable 200-240 mg/dL Borderline >240 mg/dL High Risk Glucose [Mass/Vol] 90 mg/dL 74-106 [facility] Work Phone: Potassium [Moles/Vol] 5.1 mmol/L 3.5-5.1 [facility] Work Phone: Sodium [Moles/Vol] 140 mmol/L 136-145 [facility] Work Phone: Triglyceride [Mass/Vol] 104 mg/dL [facility] Work Phone: Comment on above: The drugs N-Acetylcy steine and Metamizole may falsely depress this assay.Serum Triglycerides Reference Interval Normal <150 mg/dL Borderline high 150 - 199 mg/dL High 200 - 499 mg/dL Very High > or = 500 mg/dL WBC (Bld) [#/Vol] 6.8 10*3/uL 4.4-11.0 [facility] Work Phone: Blood erythrocytes count (nu mber/volume)on 03-10-2022 RBC (Bld) [#/Vol] 3.63 10*6/uL 4.6-6.2 [facility] Work Phone: Blood hemoglobin measurement (mass/volume)on 03-10-2022 Hemoglobin (Bld) [Mass/Vol] 11.5 g/dL 13.0-16.5 [facility] Work Phone: Blood platelet mean volumeon 03-10-2022 Platelet mean volume (Bld) [Entitic vol] 11.5 fL 6.2-12.0 [facility] Work Phone: Determination of erythrocyte mean corpuscular volume (MCV)on 03-10-2022 MCV (RBC) [Entitic vol] 100.6 fL 80-94 [facility] Work Phone: Hematocrit Auto (Bld) [Volum e fraction]on 03-10-2022 Hematocrit (Bld) [Volume fraction] 36.5 % 40-54 [facility] Work Phone: Laboratory - Chemistry and C hemistry - challengeon 03-10-2022 CO2 [Moles/Vol] 23.0 mmol/L 21.0-32.0 [facility] Work Phone: Magnesium [Mass/Vol] 2.2 mg/dL 1.6-2.6 [facility] Work Phone: Urea nitrogen/Creatinine [Mass ratio] 16.3 mg/mg 10-20 [facility] Work Phone: Laboratory - Hematology and Cell countson 03-10-2022 Erythrocyte distribution width (RBC) [Entitic vol] 48.2 fL 35.1-43.9 [facility] Work Phone: Erythrocyte distribution width (RBC) [Ratio] 12.9 % 11.6-14.6 [facility] Work Phone: MCH (RBC) [Entitic mass] 31.7 pg 27.0-32.0 [facility] Work Phone: MCHC Auto (RBC) [Mass/Vol]on 03-10-2022 MCHC (RBC) [Mass/Vol] 31.5 g/dL 32-36 [facility] Work Phone: No Panel Informationon 03-10 Estimated GFR (MDRD) Amer 33 mL/min >60 [facility] Work Phone: Comment on above: GFR Calc Estimated GFR (MDRD) Non-Af Amer 27 mL/min >60 [facility] Work Phone: Comment on above: Non- GFR Calc Parathyroid Hormone (Intact) 92.0 pg/mL 18.4-80.1 [facility] Work Phone: Urine Microalbumin/Creatinine Ratio 133.3 mg/g CRE <30 [facility] Work Phone: Vitamin D 25-Hydroxy 44.3 ng/mL [facility] Work Phone: Comment on above: Vitamin D 25(OH) Sta tus Range Deficiency <20 ng/mL (50nmol/L) Insufficiency 20 - 30 ng/mL (50 - 75 nmol/L) Sufficiency 30 - 100 ng/mL (75 - 250 nmol/L) Toxicity >100 ng/mL (>250 nmol/L) Platelets bldon 03-10-2022 Platelets (Bld) [#/Vol] 191 10*3/uL 150-450 [facility] Work Phone: Serum or plasma albumin herman urement (mass/volume)on 03-10-2022 Albumin [Mass/Vol] 3.8 g/dL 3.2-5.0 [facility] Work Phone: Serum or plasma calcium herman urement (mass/volume)on 03-10-2022 Calcium [Mass/Vol] 8.4 mg/dL 8.5-10.1 [facility] Work Phone: Serum or plasma cholesterol in HDL measurement (mass/volume)on 03-10-2022 Cholesterol in HDL [Mass/Vol] 40 mg/dL [facility] Work Phone: Comment on above: The drugs N-Acetylcy steine and Metamizole may falsely depress this assay. Reference Range HDL <40 mg/dL Low HDL Cholesterol HDL >or= 60 mg/dL High HDL Cholesterol Serum or plasma cholesterol in VLDL measurement (mass/volume)on 03-10-2022 Cholesterol in VLDL [Mass/Vol] 21 mg/dL 5-40 [facility] Work Phone: Serum or plasma creatinine m easurement (mass/volume)on 03-10-2022 Creatinine [Mass/Vol] 2.51 mg/dL 0.70-1.30 [facility] Work Phone: Comment on above: The validity of the calculated GFR & GFRAA in patients over 70 years has not been determined. Clinical correlation is essential. Serum or plasma low density lipoprotein (LDL) cholesterol measurement (mass/volume)on 03-10-2022 Cholesterol in LDL [Mass/Vol] 111 mg/dL 0-130 [facility] Work Phone: Serum or plasma urea nitroge n measurement (mass/volume)on 03-10-2022 Urea nitrogen [Mass/Vol] 41 mg/dL 7-18 [facility] Work Phone: Thin prep Papanicolaou smear with manual screeningon 03-10-2022 Thin prep Papanicolaou smear with manual screening 52.0 mg/L NO RANGE EST. [facility] Work Phone: Urine creatinine measurement (mass/volume)on 03-10-2022 Creatinine (U) [Mass/Vol] 39.00 mg/dL NO RANGE EST. [facility] Work Phone: Encounters Encounter Date Encounter Type Care Provider Facility Start: 08-08-2025 End: 08-08-2025 ambulatory [facility] Facility:[facility] Start: 03-14-2025 End: 03-14-[address] Baljeet Donaldson MD Work Phone: [facility] Work Phone: Start: 03-14-2025 End: 03-14-[address] Baljeet Donaldson MD -Laboratory Work Phone: Start: 03-14-2025 End: 03-14-2025 ambulatory Baljeet Donaldson Facility:[facility] Start: 02-01-2025 End: 02-01-[address] Baljeet Donaldson MD Work Phone: [facility] Work Phone: Start: 02-01-2025 End: 02-01-[address] George Forrest MD -Laboratory Work Phone: Start: 02-01-2025 End: 02-01-2025 ambulatory George Forrest Facility:[facility] Start: 03-14-2024 End: 03-14-2024 ambulatory [facility] Work Phone: Start: 03-14-2024 End: 03-14-2024 Patient encounter procedure [facility] Start: 02-09-2024 End: 02-09-2024 ambulatory [facility] Work Phone: Start: 02-09-2024 End: 02-09-[facility]24 [facility] Start: 09-17-2023 End: 09-17-2023 ambulatory [facility] Work Phone: Start: 09-17-2023 End: 09-17-2023 [facility] Start: 07-27-2023 End: 07-27-2023 Patient encounter procedure [facility] Work Phone: Start: 03-16-2023 End: 03-16-2023 ambulatory [facility] Work Phone: Start: 03-16-2023 End: 03-16-2023 [facility] Start: 01-13-2023 End: 01-13-2023 ambulatory [facility] Work Phone: Start: 01-13-2023 End: 01-13-2023 Patient encounter procedure [facility] Start: 10-13-2022 End: 10-13-2022 ambulatory [facility] Work Phone: Start: 10-13-2022 End: 10-13-2022 [facility] Start: 09-08-2022 End: 09-08-2022 [facility] Start: 03-10-2022 End: 03-10-2022 Patient encounter procedure [facility] Procedures Date Procedure Procedure Detail Performing Clinician Start: 02-01-2025 Serum inorganic phos phate measurement Dr. Baljeet Donaldson MD Work Phone: Immunizations Immunization Date Immunization Notes Care Provider Fa cility 02-05-2021 Covid (Pfizer) [facility] 01-15-2021 Covid (Pfizer) [facility] Payers Date Payer Category Payer Medicare [id number] 2025 Self-pay [id number] 2025 Unknown [id number] Unknown [id number] Unknown [id number] Social History Date Type Detail Facility Start: 08-12-2013 End: 08-12-2013 Tobacco smoking status [facility] Unknown if ever smoked [facility] Start: 1950 Sex Assigned At Male [facility] Start: 08-12-2013 [facility] Start: 02-04-2025 Sex Male (finding) [facility] Evaluation note Note Date & Type Note Facility Evaluation note No assessment information availa ble [facility] Work Phone: Reason for referral (narrative) Note Date & Type Note Facility Reason for referral (narrative) No reason for referral information available [facility] Work Phone: Chief Complaint and Reason for Visit Chief Complaint 2 ORDERING DOCTORS Chief Complaint 2 DRS/ 2 ORDERS Summary Purpose Family History No Family History Records Found Advance Directives No Advanced Directives Records Found Additional Source Comments Goals (unrecognized section and content) Goals may be documented in a n alternate sectionGoals may be documented in an alternate sectionGoals may be documented in an alternate sectionGoals may be documented in an alternate sectionGoals may be documented in an alternate sectionGoals may be documented in an alternate sectionGoals may be documented in an alternate sectionGoals may be documented in an alternate sectionGoals may be documented in an alternate section Care Teams (unrecognized sec tion and content) Team Status: Active Member Role Status Dates Dr. Baljeet Donaldson MD Family Provider Active Dr. Baljeet Donaldson MD Primary Care Provider Active Team Status: Inactive Member Role Status Dates Dr. Baljeet Donaldson MD Primary Care Provider Active Dr. Anayeli Tello MD Attending Provider, Re ferring Provider Active Team Status: Inactive Member Role Status Dates Dr. Baljeet Donaldson MD Primary Care Provi sushila, Attending Provider, Referring Provider Active Team Status: Inactive Member Role Status Dates Dr. Baljeet Donaldson MD Primary Care Provider Active Dr. George Forrest MD Attending Provider, Referri ng Provider Active Team Status: Inactive Member Role Status Dates Dr. Baljeet Donaldson MD Primary Care Provider, Attending Provider Active Team Status: Inactive Member Role Status Dates Dr. Baljeet Donaldson MD Primary Care Provider Active Start: February 01, 2025 End: February 01, 2025 Dr. George Forrest MD Attending Provider Active Start: February 01, 2025 End: February 01, 2025 Dr. George Forrest MD Referring Provider Active Start: February 01, 2025 End: February 01, 2025 Team Status: Inactive Member Role Status Dates Dr. Baljeet Donaldson MD Primary Care Provider Active Start: March 14, 2025 End: March 14, 2025 Dr. Baljeet Donaldson MD Attending Provider Active Start: March 14, 2025 End: March 14, 2025 Dr. Baljeet Donaldson MD Referring Provider Active Start: March 14, 2025 End: March 14, 2025 (unrecognized sect ion and content) No Status Records Found INFORMATION SOURCE (unrecogn ized section and content) DATE CREATED AUTHOR 09/03/2025 [facility] FOR RECORDS PERTAINING TO PATIENTS WHO ARE OR HAVE BEEN ENROLLED IN A CHEMICAL DEPENDENCY/SUBSTANCEABUSE PROGRAM, SOME INFORMATION MAY BE OMITTED. This clinical summary was aggregated from multiple sources. Caution should be exercised in using it in the provision of clinical care. This summary normalizes information from multiple sources, and as a consequence, information in this document may materially change the coding, format and clinical context of patient data. In addition, data may be omitted in some cases. CLINICAL DECISIONS SHOULD BE BASED ON THE PRIMARY CLINICAL RECORDS. [facility]. provides no warranty or guarantee of the accuracy or completeness of information in this document.
[2025-09-15 18:02] LABS: Cholesterol 152 mg/dL (<=200); Low Density Lipoprotein Calc. 98 mg/dL; PSA,Total- Diagnostic 3.60 ng/mL (0.00-4.00); Triglycerides 90 mg/dL; Very Low Density Lipoprotein 18 mg/dL (5-40); cholesterol:hdl ratio screen 4.18
[2025-09-15 18:14] LABS: AST(SGOT) 14 U/L (<=37); Alanine Aminotransfer ALT/SGPT 9 U/L (<=46); Albumin, Serum 4.1 g/dL (3.4-4.8); Alkaline Phosphatase 54 U/L (40-129); Anion Gap 10 (5-15); BUN 34 mg/dL (4-19); BUN/Creat Ratio 12.8 RATIO (10-20); Calcium,Total 9.1 mg/dL (7.6-11.0); Carbon Dioxide 22.2 mmol/L (21.0-32.0); Chloride 108 mmol/L (98-108); Glucose 87 mg/dL (70-99); Potassium 5.5 mmol/L (3.3-5.1)
[2025-09-15 18:23] LABS: Globulin 2.3 g/dL (2.2-4.2)
== END | disposition home or self-care (01) ==
LOC: MFPLAB 14:18
PROVIDERS: PCP Family Medicine; Referring Provider Family Medicine; Visit Provider Family Medicine
DX: I10 Essential (primary) hypertension (principal); N40.0 Benign prostatic hyperplasia without lower urinary tract symptoms
CPT/HCPCS: 36415; 80053; 80061; 84153

== ENCOUNTER → 2025-09-29 | Outpatient (CLI) | payer MEDICARE, OTHER, SELFPAY ==
[2025-09-29 10:37] LABS: Anion Gap 12 (5-15); BUN 41 mg/dL (4-19); BUN/Creat Ratio 13.5 RATIO (10-20); Calcium,Total 9.0 mg/dL (7.6-11.0); Carbon Dioxide 21.7 mmol/L (21.0-32.0); Chloride 107 mmol/L (98-108); Glucose 101 mg/dL (70-99); Potassium 4.6 mmol/L (3.3-5.1)
== END | disposition home or self-care (01) ==
LOC: MFPLAB 08:53
PROVIDERS: PCP Family Medicine; Visit Provider Family Medicine
DX: I10 Essential (primary) hypertension (principal)
CPT/HCPCS: 36415; 80048

== ENCOUNTER → 2025-10-16 | Outpatient (CLI) | payer MEDICARE, OTHER, SELFPAY ==
[2025-10-16 08:48] LABS: Hematocrit 35.4 % (40-54); Hemoglobin 11.0 g/dL (13.0-16.5); Mean Corp Hgb Conc 31.1 g/dL (32-36); Mean Corpuscular Volume 100.6 fL (80-94); Mean Platelet Vol. 10.8 fl (6.2-12.0); Platelet Count 197 K/mm3 (150-450); RBC Distribution Width CV 12.2 % (11.6-14.6); RBC Distribution Width SD 45.1 fl (35.1-43.9); Red Blood Count 3.52 M/mm3 (4.6-6.2); White Blood Count 4.7 K/mm3 (4.4-11.0)
[2025-10-16 09:10] LABS: Creatinine, Urine (random) 116.00 mg/dL (39.00-259.00); Protein, Urine (Random) 34.3 mg/dL (0.0-12.0); Protein:Creat Ratio 296 mg/g CRE (0-200)
[2025-10-16 09:20] LABS: PTHIN 59 pg/mL (11-61)
[2025-10-16 09:37] LABS: Albumin, Serum 4.0 g/dL (3.4-4.8); Anion Gap 11 (5-15); BUN 40 mg/dL (4-19); BUN/Creat Ratio 13.7 RATIO (10-20); Calcium,Total 9.2 mg/dL (7.6-11.0); Carbon Dioxide 22.1 mmol/L (21.0-32.0); Chloride 110 mmol/L (98-108); Glucose 101 mg/dL (70-99); Potassium 5.1 mmol/L (3.3-5.1); Vitamin D,25 Hydroxy 56.9 ng/mL (30-100)
== END | disposition home or self-care (01) ==
PROVIDERS: PCP Family Medicine; Referring Provider Internal Medicine Nephrology; Visit Provider Internal Medicine Nephrology
DX: N18.4 Chronic kidney disease, stage 4 (severe) (principal)
CPT/HCPCS: 36415; 80069; 82306; 82570; 83970; 84156; 85027

== ENCOUNTER → 2025-10-26 | Outpatient (CLI) | payer MEDICARE, OTHER, SELFPAY ==
--- NOTE | 2025-10-26 12:31 | US_ITS ---
PROCEDURE: KIDNEY AND BLADDER, 10/26/2025 REASON FOR EXAM: CKD4 TECHNIQUE: Grayscale and color doppler ultrasound of the kidneys and bladder was performed. COMPARISON: None FINDINGS: Right kidney: 11.4 cm in length. Borderline slightly echogenic appearance. Cysts up to 38 x 43 x 33 mm. Echogenic shadowing likely calculus measures 7 x 8 x 3 mm. No hydronephrosis. Left kidney: 10.9 cm in length. Echogenic appearance. Lower pole cyst measures 28 x 29 and 34 mm. No visualized calculus or hydronephrosis. Bladder: Unremarkable. Estimated volume 295 mL. No appreciable postvoid residual. Other: None. US/Kidney and Bladder IMPRESSION: 1. No hydronephrosis. Findings compatible with the provided history of chronic medical renal disease. 2. Additional description as above. Reading Location: [id number]
== END | disposition home or self-care (01) ==
LOC: US 12:27
PROVIDERS: PCP Family Medicine; Referring Provider Internal Medicine Nephrology; Visit Provider Internal Medicine Nephrology
DX: N18.4 Chronic kidney disease, stage 4 (severe) (principal)
CPT/HCPCS: 76770